=== PATIENT | male | born 1990 | race African-American/Black ===

== ENCOUNTER 2017-08-17 02:09 | Inpatient (IN) | payer OTHER ==
[~2017-08-17] VITALS: Ht 182.9 cm; Wt 76.4 kg
[2017-08-17] VITALS (23 sets, daily range): BP systolic 129–205; BP diastolic 56–104
[2017-08-17] MEDS ORDERED: NS 1,000 ML IV ONE (02:15)
[2017-08-17] MEDS ORDERED: ISOVUE-370 76% 100ML VIAL (Q9967) As Ordered ONE (02:19)
[2017-08-17] MEDS ORDERED: MIDAZOLAM 10MG/5ML SYRUP As Ordered ONE (02:26)
[2017-08-17] MEDS ORDERED: MIDAZOLAM INJ 5 MG/ML VIAL (J2250) As Ordered ONE (02:26)
[2017-08-17] MEDS ORDERED: PROPOFOL 1,000 MG/100 ML VIAL As Ordered ONE (02:33)
[2017-08-17] MEDS ORDERED: ETOMIDATE INJ 20MG/10ML VIAL IV STA (02:38)
[2017-08-17] MEDS ORDERED: SUCCINYLCHOLINE INJ 200 MG/10 ML VIAL (J0330) IV STA (02:38)
[2017-08-17] MEDS ORDERED: PROPOFOL 1,000 MG in APPROPRIATE DILUENT 1 EA IV SCH (02:45)
[2017-08-17] MEDS ORDERED: MIDAZOLAM INJ 5 MG/ML VIAL (J2250) IV ONE (02:52)
[2017-08-17 03:26] LABS: METHADONE URINE NEGATIVE (NEGATIVE)
[2017-08-17 03:28] LABS: ABG BASE EXCESS -3.7 (-2.0-2.0); ABG HCO3 21.7 MEQ/L (22.0-26.0); ABG PARTIAL PRESSURE CO2 40.6 mmHg (35.0-45.0); ABG PARTIAL PRESSURE O2 215.1 mmHg (75.0-100.0); ABG STANDARD HCO3 21.4 MEQ/L (22.0-26.0); ABG TOTAL CO2 22.9 MEQ/L (22.0-29.0); ABG pH (ARTERIAL) 7.345 UNITS (7.350-7.450)
[2017-08-17] MEDS ORDERED: LORazepam 2 MG/ML VIAL (J2060) IV STA (03:38)
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
[2017-08-17] MEDS ORDERED: D5W IV ONE (03:45)
[2017-08-17] MEDS ORDERED: LEVETIRACETAM IV ONE (03:45)
--- NOTE | 2017-08-17 03:50 | REPUSA ---
CLINICAL HISTORY: Neck pain. TECHNIQUE: Multiple axial images were obtained through the cervical spine. Images were also reconstru cted in coronal and sagittal planes. The study was performed without IV contrast. COMMENTS: There is no fracture or spondylolisthesis visualized. The paraspinal soft tissues are unremarkable. T here are no lytic or blastic lesions. Straightening of cervical lordosis is seen, suggesting muscular spasm. There is evidence of minimal m ultilevel disk disease, demonstrated by minimal osteophytosis and endplate sclerosis. No significant disk herniation is noted at any level. Canal and foramina remain patent. IMPRESSION: 1. No fracture or spondylolisthesis. 2. Straightening of cervical lordosis is seen, suggesting muscular spasm. 3. Minimal multilevel spondylosis. Thank you for your kind referral of this patient.
[2017-08-17] MEDS ORDERED: levETIRAcetam INJection 1,000 MG in D5W 100 ML IV ONE (04:00)
[2017-08-17 04:02] LABS: METHADONE URINE NEGATIVE (NEGATIVE)
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
[2017-08-17] MEDS: VECURONIUM BROMIDE 50 MG in D5W 50 ML IV SCH ×2 (04:39→04:45)
[2017-08-17] MEDS ORDERED: NS 1,000 ML IV SCH (05:15)
[2017-08-17 05:16] LABS: BASO % 0.2 % (0.0-1.0); EOS % 0.2 % (0.0-3.0); LARGE UNSTAINED CELL # 0.1 K/mm3 (0.0-0.4); LARGE UNSTAINED CELL % 0.8 % (0.0-4.0); LYMPH # 1.2 K/mm3 (1.5-6.5); LYMPH % 11.7 % (24.0-44.0); MEAN CORPUSCULAR HEMOGLOBIN 33.2 pg (27.0-33.0); MONO # 0.5 K/mm3 (0.0-0.8); MONO % 4.6 % (0.0-5.0); NEUTROPHILS # 8.6 K/mm3 (1.8-7.7); NEUTROPHILS % 82.5 % (36.0-66.0); PLATELET COUNT, AUTOMATED 202 k/mm3 (150-450); RED CELL DISTRIBUTION WIDTH 12.4 % (11.5-14.5); WHITE BLOOD COUNT 10.4 K/mm3 (4.0-10.0)
[2017-08-17 05:22] LABS: MEAN CORPUSCULAR HGB CONC 36.9 g/dl (32.0-36.5)
[2017-08-17 05:33] LABS: BLOOD UREA NITROGEN 15 MG/DL (7-18); CREATININE FOR GFR 1.36 MG/DL (0.70-1.30); GLUCOSE, FASTING 94 MG/DL (70-105)
[2017-08-17 05:34] LABS: ALKALINE PHOSPHATASE 50 U/L (45-117); ALT/SGPT 44 U/L (12-78); AMYLASE 45 U/L (25-115); AST/SGOT 61 U/L (15-37); BILIRUBIN,DIRECT 0.2 MG/DL (0.0-0.2); BILIRUBIN,TOTAL 0.7 MG/DL (0.2-1.0); CALCIUM LEVEL 8.3 MG/DL (8.5-10.1); CARBON DIOXIDE LEVEL 27 MEQ/L (21-32); CHLORIDE LEVEL 102 MEQ/L (98-107); POTASSIUM SERUM 3.8 MEQ/L (3.5-5.1); TOTAL PROTEIN 7.1 GM/DL (6.4-8.2)
[2017-08-17 05:56] LABS: MAGNESIUM LEVEL 1.6 MG/DL (1.8-2.4); PHOSPHORUS LEVEL 1.4 MG/DL (2.5-4.9)
[2017-08-17] MEDS ORDERED: ONDANSETRON 4MG/2ML VIAL (J2405) IV SCH (06:00)
[2017-08-17] MEDS ORDERED: VECURONIUM BROMIDE 10 MG VIAL IV STA (06:13)
[2017-08-17] MEDS: CISATRACURIUM 200 MG in NS 480 ML IV SCH (06:15)
[2017-08-17] MEDS ORDERED: CISATRACURIUM 10MG/ML 20 ML VIAL IV ONE (06:17)
[2017-08-17] MEDS ORDERED: CISATRACURIUM 10MG/ML 20 ML VIAL As Ordered ONE (06:17)
[2017-08-17] MEDS: ACETAMINOPHEN 325 MG/10.15 ML UDC GT PRN (06:30)
[2017-08-17] MEDS ORDERED: CISATRACURIUM 200 MG in NS 480 ML IV SCH (06:30)
[2017-08-17] MEDS: PROPOFOL 1,000 MG in APPROPRIATE DILUENT 1 EA IV SCH ×6 (06:44→22:52)
--- NOTE | 2017-08-17 07:40 | REP ---
Clinical: Trauma. Technique: Single portable supine view. Findings: Endotracheal tube 2.5 cm above the maria del rosario. Mediastinum and cardiac silhouette normal. Lung quiroz are clear and without focal consolidation, effusion, or pneumothorax. Skeletal structures are intact. Impression: 1. Endotracheal tube in satisfactory position. 2. No acute consolidation. Signed by Luis Finch MD 08/17/2017 07:31 A
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
[2017-08-17 08:13] LABS: ALBUMIN 4.1 GM/DL (3.2-5.2); ALBUMIN/GLOBULIN RATIO 1.37 (1.00-1.93); ANION GAP 11 MEQ/L (8-16); SODIUM LEVEL 140 MEQ/L (136-145)
[2017-08-17] MEDS: CHLORHEXIDINE GLUCONATE 0.12 % 15ML UDC (PERIDEX ORAL RINSE) MT SCH ×2 (09:00→21:34)
[2017-08-17] MEDS: PANTOPRAZOLE 40MG INJ (PROTONIX) (C9113) IV SCH (10:06)
[2017-08-17] MEDS ORDERED: NEUTRA-PHOS 1.25 GM PACKET PO STA (11:14)
[2017-08-17] MEDS ORDERED: MIDAZOLAM INJ 2 MG/2 ML VIAL (J2250) IV ONE (11:15)
[2017-08-17] MEDS: MAG SULF 1GM/100ML (MAG RUN) 1 GM in APPROPRIATE DILUENT 1 EA IV SCH ×2 (11:30→13:32)
[2017-08-17] MEDS ORDERED: levETIRAcetam INJection 1,000 MG in D5W 100 ML IV SCH (12:00)
[2017-08-17] MEDS: levETIRAcetam INJection 500 MG in D5W MINI-BAG PLUS 100 ML IV SCH ×4 (12:50→22:23)
--- NOTE | 2017-08-17 17:26 | ECGEPIP ---
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
[2017-08-17] MEDS ORDERED: BACITRACIN OINT 30GM TOP ONE (19:00)
[2017-08-17] MEDS: IPRATROPIUM 0.5MG/ALBUTEROL 2.5MG INH SOL UD 3ML (DUONEB)(J7620) NEB SCH (19:10)
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
[2017-08-18] VITALS (32 sets, daily range): BP systolic 92–176; BP diastolic 50–102
[2017-08-18] MEDS: PROPOFOL 1,000 MG in APPROPRIATE DILUENT 1 EA IV SCH ×8 (01:07→21:22)
[2017-08-18] MEDS: levETIRAcetam INJection 500 MG in D5W MINI-BAG PLUS 100 ML IV SCH ×6 (04:07→20:59)
[2017-08-18] MEDS: ACETAMINOPHEN 325 MG/10.15 ML UDC GT PRN (04:08)
[2017-08-18 05:05] LABS: MEAN CORPUSCULAR HEMOGLOBIN 32.6 pg (27.0-33.0); RED CELL DISTRIBUTION WIDTH 12.7 % (11.5-14.5); WHITE BLOOD COUNT 10.6 K/mm3 (4.0-10.0)
[2017-08-18 05:21] LABS: ALKALINE PHOSPHATASE 58 U/L (45-117); ALT/SGPT 40 U/L (12-78); ANION GAP 10 MEQ/L (8-16); AST/SGOT 76 U/L (15-37); BLOOD UREA NITROGEN 13 MG/DL (7-18); CALCIUM LEVEL 8.8 MG/DL (8.5-10.1); CARBON DIOXIDE LEVEL 25 MEQ/L (21-32); CHLORIDE LEVEL 106 MEQ/L (98-107); CREATININE FOR GFR 1.43 MG/DL (0.70-1.30); GLOMERULAR FILTRATION RATE > 60.0 (>60); GLUCOSE, FASTING 116 MG/DL (70-105); POTASSIUM SERUM 4.5 MEQ/L (3.5-5.1); SODIUM LEVEL 141 MEQ/L (136-145)
[2017-08-18 06:03] LABS: ABG BASE EXCESS -0.5 (-2.0-2.0); ABG PARTIAL PRESSURE CO2 30.5 mmHg (35.0-45.0); ABG PARTIAL PRESSURE O2 150.9 mmHg (75.0-100.0); ABG STANDARD HCO3 24.1 MEQ/L (22.0-26.0); ABG TOTAL CO2 22.9 MEQ/L (22.0-29.0); ABG pH (ARTERIAL) 7.475 UNITS (7.350-7.450)
[2017-08-18] MEDS: CISATRACURIUM 200 MG in NS 480 ML IV SCH ×2 (06:29→12:52)
[2017-08-18] MEDS: IPRATROPIUM 0.5MG/ALBUTEROL 2.5MG INH SOL UD 3ML (DUONEB)(J7620) NEB SCH ×4 (07:42→19:23)
[2017-08-18] MEDS: MORPHINE 2 MG/ML 1ML SYRINGE IV PRN (08:37)
[2017-08-18] MEDS: CHLORHEXIDINE GLUCONATE 0.12 % 15ML UDC (PERIDEX ORAL RINSE) MT SCH ×2 (08:37→21:22)
[2017-08-18] MEDS: PANTOPRAZOLE 40MG INJ (PROTONIX) (C9113) IV SCH (08:37)
--- NOTE | 2017-08-18 09:06 | REP ---
Clinical: Respiratory failure. Comparison: 08/17/2017. Findings: Endotracheal tube approximately 3 cm above the maria del rosario. Nasogastric tube courses below left hemidiaphragm. Mediastinum and cardiac silhouette are normal. Lung quiroz are clear and without consolidation, effusion, or pneumothorax. Impression: 1. Lines and tubes in satisfactory position. II. No acute cardiopulmonary process. Signed by Luis Finch MD 08/18/2017 08:22 A
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
[2017-08-18] MEDS: MIDAZOLAM INJ 2 MG/2 ML VIAL (J2250) IV PRN ×5 (09:59→19:15)
[2017-08-18] MEDS: ACETAMINOPHEN 325 MG/10.15 ML UDC GT SCH ×3 (10:13→21:22)
[2017-08-18] MEDS ORDERED: MIDAZOLAM INJ 2 MG/2 ML VIAL (J2250) IV ONE ×3 (12:22→12:50)
[2017-08-18] MEDS ORDERED: MIDAZOLAM INJ 5 MG/ML VIAL (J2250) As Ordered ONE ×3 (12:22→12:50)
[2017-08-18] MEDS ORDERED: PHENYTOIN INJ 250 MG/5 ML VIAL (J1165) IV ONE (13:15)
[2017-08-18] MEDS ORDERED: NS IV ONE (13:30)
[2017-08-18] MEDS ORDERED: PHENYTOIN IV ONE (13:30)
--- NOTE | 2017-08-18 15:05 | CCN ---
DATE: 08/18/2017 This is in addition to the 45 minutes already dictated this morning. This excludes all procedures. I was called to the patient's bedside for tonic-clonic activity. Prior to my arrival, the patient had recently received Versed which stopped tonic-clonic; however, the mother who has a child with history of seizures, states that it appeared to be a seizure to her. He had drooling and was biting on his tube. Shortly after I witnessed he had a tonic-clonic seizure of approximately 2-1/2 minutes. During this time, he received a total of eight of Versed, a propofol bolus and after cessation of seizure activity, was placed back on paralysis as his temperature was going up. I then loaded with Dilantin, requested neurology consultation, and sent the patient for head CT to ensure there is no further bleeding. I requested electroencephalogram (EEG); however, at this point in time was not recommended that he receive an EEG. Will lift paralysis after head ct and Dilantin loading to ensure no further seizure activity. [facility]
--- NOTE | 2017-08-18 16:43 | REP ---
Clinical: Follow up intracranial hemorrhage. Comparison: 08/17/2017. Findings: There is essentially complete resolution of the previously identified small scattered contusions and foci of subarachnoid hemorrhage which were primarily noted in the bilateral frontal and right parietal lobes. No new acute intracranial hemorrhage, edema or mass/mass effect is appreciated. Kennedy-white differentiation is maintained. No extra-axial collection identified the ventricles, sulci and cisterns are symmetric and normal. The calvarium is intact partial opacification to the ethmoid and sphenoid sinuses noted and nonspecific. The mastoid air cells are clear. Impression: 1. Improving intracranial hemorrhages which have essentially completely resolved. No new acute hemorrhage, edema or mass/mass effect noted. No extra-axial collection. 2. Small amount of fluid in the ethmoid and sphenoid sinuses nonspecific. Signed by Luis Finch MD 08/18/2017 04:36 P
[2017-08-18] MEDS ORDERED: MIDAZOLAM INJ 2 MG/2 ML VIAL (J2250) IV STA ×3 (17:15→23:06)
[2017-08-18] MEDS: LORazepam 2 MG/ML VIAL (J2060) IV PRN ×2 (18:09→21:51)
[2017-08-18] MEDS ORDERED: LORazepam 2 MG/ML VIAL (J2060) IV SCH (18:30)
[2017-08-18] MEDS ORDERED: REFRIGERATOR IV KEYS XX PRN (18:30)
[2017-08-18] MEDS ORDERED: D5W IV SCH (19:00)
[2017-08-18] MEDS ORDERED: MIDAZOLAM HCL IV SCH (19:00)
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
[2017-08-18] MEDS ORDERED: PHENYTOIN 100 MG/2 ML VIAL (J1165) IV SCH (22:00)
[2017-08-19] VITALS (27 sets, daily range): BP systolic 95–143; BP diastolic 51–82; O2SAT 99–100
[2017-08-19] MEDS: PROPOFOL 1,000 MG in APPROPRIATE DILUENT 1 EA IV SCH ×8 (00:44→22:21)
[2017-08-19] MEDS: levETIRAcetam INJection 500 MG in D5W MINI-BAG PLUS 100 ML IV SCH ×6 (04:07→20:44)
[2017-08-19] MEDS: ACETAMINOPHEN 325 MG/10.15 ML UDC GT SCH ×4 (04:07→22:33)
[2017-08-19 05:53] LABS: ABG BASE EXCESS -2.4 (-2.0-2.0); ABG HCO3 21.4 MEQ/L (22.0-26.0); ABG PARTIAL PRESSURE CO2 34.6 mmHg (35.0-45.0); ABG PARTIAL PRESSURE O2 139.5 mmHg (75.0-100.0); ABG STANDARD HCO3 22.5 MEQ/L (22.0-26.0); ABG TOTAL CO2 22.5 MEQ/L (22.0-29.0)
[2017-08-19] MEDS: HumaLOG INSULIN (NovoLOG) PER UNIT SC SCH ×3 (06:00→18:23)
[2017-08-19 06:07] LABS: MEAN CORPUSCULAR HEMOGLOBIN 32.9 pg (27.0-33.0); MEAN CORPUSCULAR HGB CONC 35.2 g/dl (32.0-36.5); MEAN CORPUSCULAR VOLUME 93.4 fl (80.0-96.0); RED CELL DISTRIBUTION WIDTH 12.7 % (11.5-14.5); WHITE BLOOD COUNT 8.6 K/mm3 (4.0-10.0)
[2017-08-19] MEDS: PHENYTOIN INJ 250 MG/5 ML VIAL (J1165) IV SCH ×3 (06:17→22:32)
[2017-08-19 06:24] LABS: ALBUMIN 3.2 GM/DL (3.2-5.2); ALBUMIN/GLOBULIN RATIO 0.89 (1.00-1.93); ALKALINE PHOSPHATASE 58 U/L (45-117); ALT/SGPT 31 U/L (12-78); ANION GAP 10 MEQ/L (8-16); AST/SGOT 39 U/L (15-37); BILIRUBIN,TOTAL 0.6 MG/DL (0.2-1.0); BLOOD UREA NITROGEN 11 MG/DL (7-18); CALCIUM LEVEL 8.6 MG/DL (8.5-10.1); CARBON DIOXIDE LEVEL 25 MEQ/L (21-32); CHLORIDE LEVEL 107 MEQ/L (98-107); CREATININE FOR GFR 1.15 MG/DL (0.70-1.30); GLOMERULAR FILTRATION RATE > 60.0 (>60); GLUCOSE, FASTING 185 MG/DL (70-105); POTASSIUM SERUM 4.1 MEQ/L (3.5-5.1); SODIUM LEVEL 142 MEQ/L (136-145); TOTAL PROTEIN 6.8 GM/DL (6.4-8.2)
[2017-08-19] MEDS: IPRATROPIUM 0.5MG/ALBUTEROL 2.5MG INH SOL UD 3ML (DUONEB)(J7620) NEB SCH ×4 (07:08→20:00)
[2017-08-19] MEDS ORDERED: REFRIGERATOR IV KEYS XX PRN (07:30)
--- NOTE | 2017-08-19 07:45 | REP ---
Portable chest, 06:59 a.m., single AP view, the patient semi upright: Comparison is 08/18/2017. The lung quiroz are clear. The cardiac size is normal. There is thoracic scoliosis convex right, possibly positional. The endotracheal tube remains in satisfactory location with the tip just above the aortic arch. The nasogastric tube is in satisfactory position, terminating in the upper abdomen. The precise location of the distal tip is excluded at the inferior film margin. Impression: No acute cardiopulmonary findings. Thoracic scoliosis. Endotracheal tube and nasogastric tube in satisfactory locations, unchanged. Signed by Rd Hodges MD 08/19/2017 07:36 A
[2017-08-19] MEDS ORDERED: GLUCOSE 4 GM CHEW TABLET PO PRN (08:00)
[2017-08-19] MEDS ORDERED: DEXTROSE 50% 50 ML SYRINGE IV PRN (08:00)
[2017-08-19] MEDS ORDERED: GLUCAGON FOR INJ 1 MG VIAL (J1610) SC PRN (08:00)
[2017-08-19] MEDS: CHLORHEXIDINE GLUCONATE 0.12 % 15ML UDC (PERIDEX ORAL RINSE) MT SCH ×2 (09:47→22:32)
[2017-08-19] MEDS: PANTOPRAZOLE 40MG INJ (PROTONIX) (C9113) IV SCH (09:48)
[2017-08-19] MEDS ORDERED: PROPOFOL 200 MG/20 ML VIAL ONE (09:51)
[2017-08-19] MEDS ORDERED: SUCCINYLCHOLINE 100 MG/5 ML SYRINGE (J0330) ONE (09:51)
[2017-08-19] MEDS ORDERED: ETOMIDATE INJ 20MG/10ML VIAL ONE (09:51)
--- NOTE | 2017-08-19 11:31 | EEG ---
DATE OF EE08/19/2017 REFERRING PHYSICIAN: Dr. Meliton Atkins DIAGNOSIS: Traumatic brain injury, tremor, seizures. EEG NUMBER: [id number]. REASON FOR EEG: Patient with history of traumatic brain injury, subarachnoid hemorrhage, parenchymal contusions of brain who is intubated on mechanical ventilation and has seizures. This EEG was done to evaluate for epileptic potential. He is currently on propofol, Keppra, Versed, Dilantin, etc. TECHNICAL DESCRIPTION: This digital EEG was recorded by 21 scalp, ear and two EKG electrodes and was reviewed in bipolar and referential montages following reformatting in 10-20 international electrode placement system. INTERPRETATION: Patient is intubated on mechanical ventilation and under sedation. Background rhythm consisted of 4-5 Hz theta activity with mild burst suppression pattern. Photic stimulation remained unremarkable. Hyperventilation could not be performed. No focal, lateralizing or epileptiform abnormalities were seen. No clinical or electrographic seizures were recorded. CONCLUSION: This EEG in an intubated patient on mechanical ventilator under sedation is abnormal due to presence of generalized slowing and mild burst suppression pattern consistent with nonspecific diffuse cerebral dysfunction such as seen in encephalopathy due to multiple potential causes including toxic, metabolic, medication related, infectious, multifocal structural abnormalities of brain. No epileptiform abnormalities were seen. If clinical suspicion for seizures remains high, a repeat EEG after stopping sedatives should be considered. Clinical correlation is recommended.
[2017-08-19] MEDS: LORazepam 2 MG/ML VIAL (J2060) IV PRN ×2 (11:48→17:32)
[2017-08-19] MEDS: MIDAZOLAM INJ 2 MG/2 ML VIAL (J2250) IV PRN ×5 (11:56→21:27)
[2017-08-19] MEDS ORDERED: MIDAZOLAM INJ 2 MG/2 ML VIAL (J2250) IV STA (12:13)
[2017-08-19] MEDS: MORPHINE 2 MG/ML 1ML SYRINGE IV PRN (12:16)
[2017-08-19] MEDS: MIDAZOLAM HCL 100 MG in D5W 80 ML IV SCH (19:00)
[2017-08-20] VITALS (42 sets, daily range): BP systolic 78–134; BP diastolic 40–65; O2SAT 99–100
[2017-08-20] MEDS: HumaLOG INSULIN (NovoLOG) PER UNIT SC SCH ×4 (00:45→18:18)
[2017-08-20] MEDS: PROPOFOL 1,000 MG in APPROPRIATE DILUENT 1 EA IV SCH ×8 (00:50→22:47)
[2017-08-20] MEDS: ACETAMINOPHEN 325 MG/10.15 ML UDC GT SCH ×4 (03:56→21:58)
[2017-08-20] MEDS: levETIRAcetam INJection 500 MG in D5W MINI-BAG PLUS 100 ML IV SCH ×4 (03:57→11:38)
[2017-08-20 05:36] LABS: MEAN CORPUSCULAR HEMOGLOBIN 33.4 pg (27.0-33.0); MEAN CORPUSCULAR HGB CONC 35.3 g/dl (32.0-36.5); MEAN CORPUSCULAR VOLUME 94.6 fl (80.0-96.0); RED CELL DISTRIBUTION WIDTH 12.5 % (11.5-14.5); WHITE BLOOD COUNT 4.9 K/mm3 (4.0-10.0)
[2017-08-20 05:43] LABS: ABG BASE EXCESS -0.8 (-2.0-2.0); ABG HCO3 23.7 MEQ/L (22.0-26.0); ABG PARTIAL PRESSURE CO2 38.8 mmHg (35.0-45.0); ABG PARTIAL PRESSURE O2 72.9 mmHg (75.0-100.0); ABG STANDARD HCO3 23.7 MEQ/L (22.0-26.0); ABG TOTAL CO2 24.8 MEQ/L (22.0-29.0); ABG pH (ARTERIAL) 7.403 UNITS (7.350-7.450)
[2017-08-20 06:05] LABS: ALBUMIN 2.7 GM/DL (3.2-5.2); ALBUMIN/GLOBULIN RATIO 0.66 (1.00-1.93); ALKALINE PHOSPHATASE 52 U/L (45-117); ALT/SGPT 31 U/L (12-78); ANION GAP 8 MEQ/L (8-16); AST/SGOT 34 U/L (15-37); BILIRUBIN,TOTAL 0.7 MG/DL (0.2-1.0); BLOOD UREA NITROGEN 14 MG/DL (7-18); CALCIUM LEVEL 8.6 MG/DL (8.5-10.1); CARBON DIOXIDE LEVEL 26 MEQ/L (21-32); CHLORIDE LEVEL 102 MEQ/L (98-107); CREATININE FOR GFR 1.64 MG/DL (0.70-1.30); GLOMERULAR FILTRATION RATE > 60.0 (>60); GLUCOSE, FASTING 272 MG/DL (70-105); POTASSIUM SERUM 4.6 MEQ/L (3.5-5.1); SODIUM LEVEL 136 MEQ/L (136-145); TOTAL PROTEIN 6.8 GM/DL (6.4-8.2)
[2017-08-20] MEDS: PHENYTOIN INJ 250 MG/5 ML VIAL (J1165) IV SCH ×3 (06:13→21:59)
--- NOTE | 2017-08-20 08:23 | REP ---
Portable chest, 06:57 a.m., single AP view, the patient semi upright: Comparison 08/19/2017. The endotracheal tube and nasogastric tube remain in satisfactory locations, unchanged. There is new focal increased radiodensity inferiorly in the right lung compatible with effusion/infiltrate. Left lung remains clear. Cardiac size is normal. Impression: New infiltrate/effusion inferiorly in the right lung. Signed by Rd Hodges MD 08/20/2017 08:14 A
[2017-08-20] MEDS: IPRATROPIUM 0.5MG/ALBUTEROL 2.5MG INH SOL UD 3ML (DUONEB)(J7620) NEB SCH ×4 (08:41→19:28)
[2017-08-20] MEDS ORDERED: NEUTRA-PHOS 1.25 GM PACKET PO SCH (09:00)
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
[2017-08-20] MEDS: PANTOPRAZOLE 40MG INJ (PROTONIX) (C9113) IV SCH (09:30)
[2017-08-20] MEDS: MORPHINE 2 MG/ML 1ML SYRINGE IV PRN ×3 (09:32→14:13)
[2017-08-20] MEDS: MIDAZOLAM HCL 100 MG in D5W 80 ML IV SCH (10:23)
[2017-08-20 11:02] LABS: MAGNESIUM LEVEL 1.4 MG/DL (1.8-2.4); PHOSPHORUS LEVEL 2.3 MG/DL (2.5-4.9)
--- NOTE | 2017-08-20 11:36 | CCN ---
DATE OF SERVICE: 08/19/2017 Critical care time was 1 hour. This excludes all procedures. Overnight, patient had some seizure activity. Last seizure witnessed was about midnight. He is having intermittent tremors this morning, which do not appear to be seizure activity and stop with touch. He required Dilantin loading and then an increase in the Dilantin dosing. He also continues on Keppra along with propofol and Versed. Repeat head CT yesterday showed some resolving parenchymal hemorrhage. PHYSICAL EXAM: Temperature is 97.9 rectally, pulse is 84, respiratory rate is 20, blood pressure is 95/53 with a mean arterial pressure of 67, oxygen saturation is 99% on 0.25. General: Patient is sedated on mechanical ventilation with occasional tremor this morning. HEENT: Sclera clear on the right. Minimal yellowing to the lateral sclera on the left. There is a lateral canthus lesion. Pupils are approximately 3 mm and reactive to light. There is no evidence of nasopharyngeal bleeding. No bleeding from the ears bilaterally. Tongue is midline. Possible lesion on the lateral tongue on the right without any bleeding, but the tongue is midline. Jaw is easily opened. Neck: Is supple. No tracheal deviation or mass. No elevated JVP. Carotid upstroke is normal. Cardiac: Regular S1, S2 without audible murmur, rub, or gallop. No elevated JVP. No edema. Pulmonary: Clear to auscultation without rales, rhonchi, or wheezes. No dullness to percussion. No accessory muscle use. Abdomen: Soft, nontender, and nondistended with normoactive bowel sounds. No bowel movements as of yet; however, did pass flatus. Extremities: No cyanosis, clubbing, or edema. Neurologic: At this point in time, has one beat of myoclonus and the lower extremities has a tremor in response to being moved; however, this self resolves. There is no evidence of seizure activity this morning. Musculoskeletal: Muscle tone well developed. LABORATORY: Laboratory evaluation shows sodium 142, potassium 4.1, chloride 107, bicarbonate 25, BUN of 11. Creatinine is down to 1.15 from 1.43. Arterial blood gas shows a pH of 7.41, pCO2 of 35, pO2 of 139. Hemoglobin of 14.4, hematocrit of 40.8 with a platelet count of 175. Glucose is elevated at 185. Chest x-ray shows that the endotracheal tube is too high. IMPRESSION: 1. Respiratory failure. Continues to require mechanical ventilation. Has significant seizure activity. I did observe full tonic-clonic seizures yesterday. Observed by the nursing staff overnight last at midnight. He had some tremulousness this morning and shivering, does not appear to be true seizure activity. He will be obtaining an EEG this morning. 2. Hyperglycemia. Placed him on a sliding scale insulin. Likely from the D5 that is mixed in with his medications. 3. Gastrointestinal (GI) prophylaxis. On Protonix. 4. Nutrition. On tube feeds at 70 mL/h. 5. Seizures, fairly frequent requiring significant medication administration. As above, has EEG pending today. Is currently on Keppra, Dilantin three times a day, Versed, propofol; however, most recent CT showed improved hemorrhage. 6. Deep venous thrombosis (DVT) prophylaxis with thromboembolism deterrents (TEDs) and Kend[place]. Appreciate Dr. Dickinson's input. Overall, I am hopeful for a good overall prognosis. His most critical diagnosis is his ongoing seizure activity. Will continue to monitor for improvement in seizure activity and timing of extubation trials.
[2017-08-20] MEDS ORDERED: METOCLOPRAMIDE 5 MG TAB PO SCH (12:00)
[2017-08-20 12:33] LABS: OSMOLALITY URINE 523 MOSM/KG (500-800)
[2017-08-20] MEDS ORDERED: MAGNESIUM SULFATE 8 MEQ in NS 100 ML IV ONE (13:00)
[2017-08-20] MEDS ORDERED: TOLVAPTAN 15 MG TAB (SAMSCA) NG ONE (13:15)
[2017-08-20] MEDS ORDERED: MAG SULF 1GM/100ML (MAG RUN) 1 GM in APPROPRIATE DILUENT 1 EA IV ONE ×2 (13:15→14:15)
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
[2017-08-20] MEDS ORDERED: SODIUM PHOSPHATE INJ 20 MMOL in D5W 250 ML IV ONE (14:00)
[2017-08-20] MEDS: NS 1,000 ML IV SCH (14:11)
[2017-08-20] MEDS: METOCLOPRAMIDE INJ 10MG/2ML VIAL (J2765) IV SCH ×2 (14:12→19:37)
[2017-08-20 14:28] LABS: CALCIUM LEVEL 8.3 MG/DL (8.5-10.1); CREATININE FOR GFR 1.91 MG/DL (0.70-1.30); GLOMERULAR FILTRATION RATE 54.4 (>60); POTASSIUM SERUM 4.6 MEQ/L (3.5-5.1)
[2017-08-20] MEDS: CHLORHEXIDINE GLUCONATE 0.12 % 15ML UDC (PERIDEX ORAL RINSE) MT SCH ×2 (14:43→21:58)
--- NOTE | 2017-08-20 15:21 | CCN ---
DATE: 08/20/2017 Critical care time was 1 hour. This excludes all procedures. On review of the patient's morning laboratories, he had a sodium change of 6. Unbeknownst to me, nephrology was already reconsulted. I had placed similar orders to what they had placed and then discontinued them. I agree with their assessment. Normal saline needs to be administered. We will continue to watch sodium closely to avoid any rapid changes. I will therefore defer the management of the sodium to the simulation educator as this is what I assume that were consulted for. He had his tube feeds held overnight, which I believe is the most likely reason for the change in his sodium. Overall, he has been doing well and has been having less seizure activity, remains on sedation. Head CT from this morning shows resolving petechial hemorrhages, some slight increase in edema. No midline shift. The patient has been having high residuals. VITAL SIGNS: Temperature is 98.6, pulse is 97, respiratory rate is 26, blood pressure is 107/51, oxygen saturations 96% on 25% FiO2. PHYSICAL EXAMINATION: Pupils are small but reactive to light. Mucous membranes are moist without lesions. There has been a foul grant discharge from his mouth thought to be possibly tube feeds. Neck has a soft collar in place. Lymphatics: No cervical, supraclavicular, or axillary adenopathy. CARDIAC: Regular S1, S2 without audible murmur, rub or gallop. No elevated jugular venous pressure. No peripheral edema. PULMONARY: Clear to auscultation without rales, rhonchi or wheezes. No accessory muscle use. ABDOMEN: Soft, nontender, nondistended. No hepatosplenomegaly. No masses or hernia. EXTREMITIES: No cyanosis, clubbing or edema. NEUROLOGIC: No evidence of myoclonus or seizure activity today. SKIN: No rashes, jaundice or bruising. Left canthus laceration, healing without surrounding erythema. Chest x-ray shows a new finding this morning of right lower lobe effusion. Endotracheal tube is in good position. OG tube is in good position. There are no central lines. Laboratory evaluation shows a sodium 136, potassium 4.6, chloride 102, bicarbonate of 26, BUN of 14, creatinine 1.6, phosphorus of 2.3, magnesium of 1.4. White blood cell count is 4.9, hemoglobin is 14.4, hematocrit is 40.9, platelet count is 165. IMPRESSION: 1. Respiratory failure secondary to traumatic brain injury, currently doing well on mechanical ventilation. Arterial blood gas shows a pH of 7.40, pCO2 of 38 and pAO2 of 73. 2. Change of 6 in sodium. I feel this is likely from his decreased input. I agree with nephrology's current recommendation and changes. 3. Hypomagnesemia. Replaced by nephrology. 4. Traumatic brain injury with seizures. Plan is to remove sedation tomorrow to evaluate seizure activity and to consider EEG based on response. 5. GI dysmotility. Have added Reglan to help with tube feeds. 6. Gastrointestinal prophylaxis with Protonix. 7. Deep vein thrombosis (DVT) prophylaxis. Andre.
--- NOTE | 2017-08-20 15:45 | REP ---
CHEST: AP supine film of the chest is performed 3:25 p.m. and compared to prior exam the same day. Endotracheal tube is seen with the tip between the level of the clavicles and the [place]. Nasogastric tube traverses into the stomach. Right lower lobe atelectasis/infiltrate is somewhat improved. Cardiomediastinal silhouette is unchanged. IMPRESSION: Mild improvement of right lower lobe atelectasis/infiltrate. Otherwise stable. Signed by Rd Kennedy MD 08/20/2017 04:52 P
[2017-08-20] MEDS ORDERED: NS 1,000 ML IV ONE (16:00)
--- NOTE | 2017-08-20 16:35 | RO ---
DATE OF PROCEDURE: 08/20/2017 PREPROCEDURE DIAGNOSIS: Hypotension. POSTPROCEDURE DIAGNOSIS: Hypotension. OPERATIVE PROCEDURE: Right internal jugular venous catheter. Triple lumen catheter. SURGEON: Vivek Giles DO SCHOOL AGE TEACHER: None ANESTHESIA: The patient was sedated with propofol and versed. Had no reaction to touch. CONSENT: Consent was given verbally for all critical procedures. I specifically discussed this procedure with his mother previously and she had given consent in case this was needed during his ICU care, however, no written consent has been obtained. This was deemed and emergent procedure. DESCRIPTION OF PROCEDURE: The right IJ was prepped and draped in a sterile manner with chlorhexidine and full barrier precaution. The right IJ was identified under ultrasound. The [place] syringe was introduced into IJ with return of venous blood flow after a time-out was performed with two patient identifiers identifying correct site, correct procedure. The wire was then fed through the needle and the needle was removed. The triple-lumen catheter was then placed via modified Seldinger technique. All three ports returned venous blood flow and flushed easily. There were no observed complications. Postprocedure chest x- ray shows good placement with the tip in the superior vena cava (SVC). The line was sutured in at 15 cm and a sterile impregnated dressing was placed over the site. MTDJayro
--- NOTE | 2017-08-20 16:38 | RO ---
DATE OF PROCEDURE: 08/20/2017 I was called emergently to the patient's bedside for hypoxia. To evaluate the cause of his hypoxia, because I did not hear good air entry on the right, I performed bronchoscopy. PREPROCEDURE DIAGNOSIS: Hypoxia. POSTPROCEDURE DIAGNOSIS: Hypoxia. PROCEDURE: Bronchoscopy. SURGEON: Dr. Vivek Giles ORNAMENT STAPLER: None ANESTHESIA: Patient already on Versed and propofol for anesthesia. DESCRIPTION OF PROCEDURE: The patient was already sedated on mechanical ventilation. Time-out was performed using two patient identifiers, correct site, correct procedure. The bronchoscope was then introduced endotracheally with Cetacaine spray. There was no obstructing mucus. Right and left mainstem bronchi were normal except for some mucus in the right lower lobe which was suctioned. There were no observed complications. The patient was bagged and the hypoxia improved along with switching to an ear probe. Of note, the patient was slightly more hypotensive during this episode. Normal saline was administered. No observed complications. MTDD
[2017-08-20] MEDS: PIPERACILLIN/TAZOBACTAM SOD 3.375 GM in D5W MINI-BAG PLUS 50 ML IV SCH ×2 (16:51→21:58)
--- NOTE | 2017-08-20 17:10 | CCN ---
DATE: 08/20/2017 Critical care time was 30 minutes in addition to the prior hour that was already performed today. This excludes all procedures. I was urgently called to the patient's bedside for hypoxia. At the bedside, I took the patient off mechanical ventilation, bagged the patient, had saturations of 50% which appear to be in a good wave form. I heard decreased breath sounds on the left compared to the right. I was concerned for possible pneumothorax. Chest x-ray was performed showing infiltrate on the right side. I performed bronchoscopy which did not have any significant central airway obstruction but a minimal amount of mucus on the right. The patient was already on sedation. Sedation had not been changed in quite some time. Blood pressure was also lower at that point in time, and it was felt that maybe the oximetry probe had decreased perfusion and was switched to an ear probe which showed better oxygenation, although a slightly lower oxygen saturation on the same amount of oxygen that he was being previously prescribed. His blood pressure remained low; therefore, I gave a liter of normal saline bolus. Being concerned for the possibility of sepsis from an aspiration pneumonia, I placed him on antibiotics in the form of Zosyn. A central line was placed, CVP was 14. After the bolus of fluid, his blood pressure remained labile, due to the fact that his central venous pressure is 14, will use vasopressor therapy if necessary.
[2017-08-20 17:30] LABS: CALCIUM LEVEL 7.3 MG/DL (8.5-10.1); CREATININE FOR GFR 1.96 MG/DL (0.70-1.30); GLOMERULAR FILTRATION RATE 52.8 (>60); POTASSIUM SERUM 4.3 MEQ/L (3.5-5.1)
[2017-08-20] MEDS ORDERED: NOREPINEPHRINE BITARTRATE 8 MG in D5W 500 ML IV SCH (19:00)
[2017-08-20] MEDS: LEVETIRACETAM IV SCH (19:41)
[2017-08-20] MEDS: NS IV SCH (19:41)
[2017-08-20 21:19] LABS: CREATININE FOR GFR 2.09 MG/DL (0.70-1.30); POTASSIUM SERUM 4.2 MEQ/L (3.5-5.1)
[2017-08-20] MEDS: NOREPINEPHRINE BITARTRATE 8 MG in D5W 500 ML IV SCH (22:46)
[2017-08-21] VITALS (41 sets, daily range): BP systolic 82–167; BP diastolic 43–97; O2SAT 93–98
[2017-08-21] MEDS: HumaLOG INSULIN (NovoLOG) PER UNIT SC SCH ×4 (00:45→18:06)
[2017-08-21] MEDS ORDERED: NS 1,000 ML IV ONE (00:45)
[2017-08-21] MEDS: METOCLOPRAMIDE INJ 10MG/2ML VIAL (J2765) IV SCH (02:00)
[2017-08-21 02:16] LABS: CALCIUM LEVEL 6.8 MG/DL (8.5-10.1); CREATININE FOR GFR 2.45 MG/DL (0.70-1.30); GLOMERULAR FILTRATION RATE 40.8 (>60); POTASSIUM SERUM 4.3 MEQ/L (3.5-5.1)
[2017-08-21] MEDS: NS 1,000 ML IV SCH (02:28)
[2017-08-21] MEDS: PROPOFOL 1,000 MG in APPROPRIATE DILUENT 1 EA IV SCH ×2 (02:29→06:40)
[2017-08-21] MEDS: PIPERACILLIN/TAZOBACTAM SOD 3.375 GM in D5W MINI-BAG PLUS 50 ML IV SCH ×4 (03:43→21:22)
[2017-08-21] MEDS: ACETAMINOPHEN 325 MG/10.15 ML UDC GT SCH ×4 (03:43→21:21)
[2017-08-21] MEDS: MIDAZOLAM HCL 100 MG in D5W 80 ML IV SCH (04:20)
[2017-08-21] MEDS: LEVETIRACETAM IV SCH ×3 (04:38→20:52)
[2017-08-21] MEDS: NS IV SCH ×3 (04:38→20:52)
[2017-08-21] MEDS: PHENYTOIN INJ 250 MG/5 ML VIAL (J1165) IV SCH ×3 (05:37→21:21)
--- NOTE | 2017-08-21 05:38 | REP ---
Portable chest x-ray: Supine AP view. Time stamp 3:46 p.m. History: Post line insertion. Respiratory failure. Comparison study 08/20/2017 at 3:29 p.m. Findings: Endotracheal tube remains in good position at the level of the transverse aorta. An NG tube enters left upper quadrant of the abdomen. A right internal jugular central venous catheter is inserted with its tip in the expected location of the superior vena cava. EKG electrodes are seen. There is a homogeneous alveolar opacity in the right lower lobe distribution. Pulmonary vascular congestion is seen. There is some right upper lobe perihilar opacity on the current film. Right lung opacity is more pronounced than on the study done 15 minutes earlier. There is some parenchymal opacity in the left lower lobe as well. There is no evidence of pneumothorax. Impression: Increasing opacity in the right lung and left lower lobe. Current film is exposed at a somewhat lesser level of inspiration. Right IJ line terminates in the expected location of the SVC. No pneumothorax is seen. Signed by Phong Santana MD 08/21/2017 09:08 A
[2017-08-21 06:06] LABS: ABG BASE EXCESS -10.9 (-2.0-2.0); ABG HCO3 15.6 MEQ/L (22.0-26.0); ABG PARTIAL PRESSURE O2 62.6 mmHg (75.0-100.0); ABG STANDARD HCO3 15.7 MEQ/L (22.0-26.0); ABG TOTAL CO2 16.7 MEQ/L (22.0-29.0)
[2017-08-21 06:06] LABS: ADD MANUAL DIFFER YES; MEAN CORPUSCULAR HGB CONC 34.1 g/dl (32.0-36.5); PLATELET COUNT, AUTOMATED 171 k/mm3 (150-450); RED CELL DISTRIBUTION WIDTH 12.7 % (11.5-14.5); WHITE BLOOD COUNT 7.8 K/mm3 (4.0-10.0)
[2017-08-21 06:11] LABS: ABG pH (ARTERIAL) 7.242 UNITS (7.350-7.450)
[2017-08-21 06:25] LABS: CALCIUM LEVEL 6.7 MG/DL (8.5-10.1); CREATININE FOR GFR 2.18 MG/DL (0.70-1.30); GLOMERULAR FILTRATION RATE 46.7 (>60); POTASSIUM SERUM 4.8 MEQ/L (3.5-5.1)
[2017-08-21 07:00] LABS: BANDS 18 % (< 11)
[2017-08-21 07:01] LABS: PLATELET CLUMPS SMALL AMT
--- NOTE | 2017-08-21 07:59 | REP ---
Portable chest, 06:57 a.m., single AP view, the patient semi upright: Comparison is 08/20/2017, 03:46 p.m. There are infiltrates throughout the right lung, more density inferiorly. Right hemidiaphragm is obscured. The findings are similar to the comparison study except that the right hemidiaphragm is not obscured previously. Focal increased radiodensity inferiorly in the left lung. This has increased. Cardiac size is upper normal. This is unchanged. The right IJ central venous catheter and nasogastric tube remain in satisfactory locations, unchanged. Signed by Rd Hodges MD 08/21/2017 07:51 A
[2017-08-21] MEDS: IPRATROPIUM 0.5MG/ALBUTEROL 2.5MG INH SOL UD 3ML (DUONEB)(J7620) NEB SCH ×4 (08:22→20:10)
[2017-08-21] MEDS ORDERED: HumaLOG INSULIN (NovoLOG) PER UNIT SC ONE (08:30)
[2017-08-21 08:58] LABS: ABG BASE EXCESS -9.8 (-2.0-2.0); ABG HCO3 16.7 MEQ/L (22.0-26.0); ABG PARTIAL PRESSURE CO2 38.6 mmHg (35.0-45.0); ABG PARTIAL PRESSURE O2 63.6 mmHg (75.0-100.0); ABG STANDARD HCO3 16.6 MEQ/L (22.0-26.0); ABG TOTAL CO2 17.9 MEQ/L (22.0-29.0); ABG pH (ARTERIAL) 7.254 UNITS (7.350-7.450)
[2017-08-21] MEDS: PANTOPRAZOLE 40MG INJ (PROTONIX) (C9113) IV SCH (09:00)
[2017-08-21] MEDS: CHLORHEXIDINE GLUCONATE 0.12 % 15ML UDC (PERIDEX ORAL RINSE) MT SCH (09:05)
--- NOTE | 2017-08-21 09:05 | CCN ---
DATE: 08/21/2017 CRITICAL CARE TIME: 1 hour 15 minutes, this excludes all procedures. I was called to patient's bedside as he was more acidotic on his arterial blood gas this morning. He is on 4 of Levophed with a blood pressure of 123/60 and CVP of 22. He has good urine output. He has a lactic acidosis with a lactate of 10 and his CK is elevated. I had a discussion with neurology this morning. It was thought that possibly the elevated lactate and CK could be due to seizure activity or propofol. I have therefore discontinued the propofol and converted him only to Versed. His Versed had been off for part of the night in order facilitate electroencephalogram (EEG) in the morning. He is overbreathing the vent. He is febrile. He is being cooled. He is also more hyperglycemic this morning. PHYSICAL EXAMINATION: Vitals: Temperature is 99.2 rectally, pulse is 95, blood pressure is 123/60 on Levophed of 4, this was turned down to 2 when I was at bedside. Respiratory rate is ranging 29 to high 30s. His oxygen saturation is 99% on 0.45 FiO2. Ins and Outs: The patient is net positive 2.6 liters over the past 24 hours. The day before that, he was net negative 386 mL. General: The patient is sedated on mechanical ventilation. No visible seizure activity. No visible tremor at this point in time. HEENT: Sclerae are edematous. Conjunctivae are edematous. Pupils are equal and reactive to light. Mucous membranes are moist. Tongue is midline. Neck is supple. Right internal jugular (IJ) is in place without surrounding erythema or exudate. Lymphs: No cervical, supraclavicular or axillary adenopathy. Cardiac: Tachycardiac. S1, S2. Without audible murmur, rub or gallop. No elevated jugular venous pulse (JVP). No peripheral edema. Pulmonary: Breath sounds are clear bilaterally. No rales, rhonchi or wheezes. No dullness to percussion. Abdomen: I do not auscultate any bowel sounds. He is using abdominal muscles with breathing. Extremities: No cyanosis, clubbing or edema. He has no significant sacral edema. LABORATORY EVALUATION: Shows a sodium of 140, potassium 4.8, chloride 104, bicarb of 19, BUN of 22, creatinine of 2.18. White blood cell count of 7.8 with a hemoglobin of 12.6, hematocrit of 36.9 and platelet count of 171. There is a bandemia of 18. Anion gap is 17 this morning. Calcium is low at 6.7. CK is elevated at 3581 and lactate is 10.9. IMPRESSION: 1. Respiratory failure secondary to traumatic brain injury. Continue on mechanical ventilation. Based on his arterial blood gas, I did increase his FiO2 this morning; however, oxygen saturation on monitoring has been 99% since the one event yesterday. 2. Sepsis with bandemia from pneumonia. He has been treated with Zosyn. His mean arterial pressure has been more than adequate since last evening. He has been on very low doses of Levophed. 3. Seizure activity. The plan is to repeat EEG off Versed and propofol this morning. Currently, he is on low levels of Versed at 2 mg. 4. Lactic acidosis most likely from muscle breakdown. This is either propofol induced or seizure/myoclonus induced. Converted propofol over to Versed. Increased lactate correlating with increased CK. 5. Hyperglycemia. Will carefully add insulin to control blood sugar; however, prevent hypoglycemia. 6. Nutrition. The patient has no bowel sounds, has had high residuals, may have been a reason for aspiration, and I do not hear any bowel sounds today despite being on Reglan. I have stopped the Reglan due to potential side effects; however, will start total parenteral nutrition (TPN) today. As nephrology has been consulted for sodium balance, I will defer the TPN to their prescription. The patient remains critically ill. Today, he has a worsening metabolic acidosis with a lactic acidosis as described above. Prognosis is guarded. If he is continuously having seizures; ultimately, I would recommend that he be transferred to a facility that has continuous EEG monitoring. ANGELICA
[2017-08-21] MEDS: NOREPINEPHRINE BITARTRATE 8 MG in D5W 500 ML IV SCH (09:20)
[2017-08-21 09:25] LABS: CALCIUM LEVEL 7.3 MG/DL (8.5-10.1); CREATININE FOR GFR 1.92 MG/DL (0.70-1.30); GLOMERULAR FILTRATION RATE 54.1 (>60); POTASSIUM SERUM 4.9 MEQ/L (3.5-5.1)
[2017-08-21 10:26] LABS: ALBUMIN 2.1 GM/DL (3.2-5.2); MAGNESIUM LEVEL 1.9 MG/DL (1.8-2.4); PHOSPHORUS LEVEL 3.8 MG/DL (2.5-4.9)
--- NOTE | 2017-08-21 12:22 | EEG ---
DATE OF PROCEDURE: 08/21/2017 REFERRING PHYSICIAN: Dr. Meliton Atkins DIAGNOSIS: Seizure. EEG NUMBER: [id number] HISTORY: The patient is a 26-year-old male with history of traumatic brain injury and frequent seizure-like spells. He is intubated on mechanical ventilator. He is currently on Dilantin, Keppra and morphine as needed. His propofol and Versed were stopped an hour before this EEG. This EEG was done to evaluate degree of encephalopathy and evaluate for epileptic potential. TECHNICAL DESCRIPTION: This digital EEG was recorded by 21 scalp, ear and two EKG electrodes and was reviewed in bipolar and referential montages following reformatting in 10-20 international electrode placement system. INTERPRETATION: The patient is intubated on a mechanical ventilator without sedation currently. His sedatives were stopped an hour before this EEG. Background rhythm consisted of 2-3 Hz delta activity measuring 15-30 microvolts in amplitude. Stage two sleep was recorded due to presence of K complexes which were symmetric bilaterally. Hyperventilation could not be performed. Photic stimulation remained unremarkable. EKG revealed normal sinus rhythm. Intermittent bilateral frontal and temporal muscle artifact was noted. No focal, lateralizing or epileptiform abnormalities were seen. No clinical or electrographic seizures were recorded. CONCLUSION: This EEG in an intubated and mechanically ventilated patient is abnormal due to presence of generalized slowing consistent with nonspecific diffuse cerebral dysfunction such as seen in encephalopathy due to multiple potential causes including toxic, metabolic, medication related, or multifocal structural brain abnormality. No focal or epileptiform abnormalities were seen. Compared to the patient's previous EEG, mild interval improvement is noted. Burst suppression pattern is no longer present. This can be due to medication changes. Clinical correlation is recommended.
[2017-08-21 12:29] LABS: CALCIUM LEVEL 7.7 MG/DL (8.5-10.1); CREATININE FOR GFR 1.78 MG/DL (0.70-1.30); POTASSIUM SERUM 4.9 MEQ/L (3.5-5.1)
[2017-08-21] MEDS ORDERED: SUCCINYLCHOLINE INJ 200 MG/10 ML VIAL (J0330) As Ordered ONE (12:30)
[2017-08-21] MEDS ORDERED: SUCCINYLCHOLINE INJ 200 MG/10 ML VIAL (J0330) IV STA (12:33)
--- NOTE | 2017-08-21 13:26 | REP ---
PORTABLE CHEST: AP supine portable view of the chest is performed and compared to prior study of 08/21/2017 at 6:56 a.m. There is an endotracheal tube. The tip is approximately 2.2 cm above the maria del rosario. Right central venous catheter is seen with the tip at the junction of the superior vena cava and right atrium. Nasogastric tube is not visualized. Bilateral infiltrates appear essentially unchanged. Signed by Rd Kennedy MD 08/21/2017 01:44 P
[2017-08-21 13:33] LABS: ABG pH (ARTERIAL) 7.314 UNITS (7.350-7.450)
[2017-08-21 13:34] LABS: ABG BASE EXCESS -6.6 (-2.0-2.0); ABG PARTIAL PRESSURE CO2 38.2 mmHg (35.0-45.0); ABG PARTIAL PRESSURE O2 53.9 mmHg (75.0-100.0); ABG STANDARD HCO3 18.9 MEQ/L (22.0-26.0); ABG TOTAL CO2 20.1 MEQ/L (22.0-29.0)
--- NOTE | 2017-08-21 14:08 | IPN ---
DATE: 08/21/2017 SUBJECTIVE: The patient was seen and examined at the bedside today in the morning in the intensive care unit (ICU). Last 24 hour events were noted. The patient continues to be intubated, sedated. The patient became septic yesterday because of possible aspiration pneumonitis. He was started on IV antibiotics. He got 2 liters of IV fluid bolus as well. He required Levophed for a few hours. Currently, he is hemodynamically stable. Renal function is improving with intravenous fluid hydration at this time. The patient's central venous pressure was noted to be around 22 this morning. Sodium level has improved to 140; however, despite being hemodynamically stable. The patient continues to have high lactic acid levels. The patient is not being fed at this time and critical care team requested TPN orders for this patient. REVIEW OF SYSTEMS: I was unable to do any review of systems on this patient, who is intubated and sedated. OBJECTIVE: VITAL SIGNS: Temperature is 100.1 degrees Fahrenheit, blood pressure is 140/54, pulse is 109, respiratory rate of 44, saturating 95% on 45% FiO2. Intake and output: Urine output recorded is 1.3 liter yesterday and 1.5 liter since overnight today. Weight on the bed scale yesterday was 74.5 kg. GENERAL: The patient is intubated and sedated. Eyes are closed. HEAD/NECK EXAM: Pupils are round and equally reactive to light on both sides. They were sluggish yesterday, pupillary response is better today; however, he does have conjunctival edema today. The patient an orogastric tube and endotracheal tube. NECK: Supple. There is no jugular venous distention (JVD) at this time. CARDIOVASCULAR: S1, S2. Tachycardia. No murmur, rub or gallop. RESPIRATORY: Slightly decreased breath sounds at the right base, otherwise no rales or rhonchi. ABDOMEN: Soft, positive bowel sounds. No organomegaly. No ascites. GENITOURINARY: The patient has an indwelling Zhou catheter. No scrotal edema. No hernia at this time. MUSCULOSKELETAL: No clubbing or cyanosis. No edema of the bilateral lower extremities. The patient does not follow commands. CENTRAL NERVOUS SYSTEM (AUTOMOBILE REPAIR SERVICE ESTIMATOR): The patient is sedated at this time. Slight grimace to painful stimuli. LYMPHATICS: No significant cervical, axillary or inguinal lymphadenopathy. SKIN: No rashes or ulcerations apart from bruises secondary to trauma on the face and forehead. LABORATORY REVIEW: CBC showed a WBC of 7.8, hemoglobin 12.6, platelets of 171, bands were 18%. Urine osmolarity this morning was 291. Urine creatinine is 44. Random urine sodium is 21. Urine chloride is 12. ABG done this morning showed a pH of 7.25, PCO2 of 38, PO2 of 63, bicarbonate 16 , oxygen saturation was 88%. BMP showed sodium 140, potassium 4.9, chloride 107, bicarbonate 23, BUN 20, creatinine 1.7, it was 1.9 yesterday, GFR 59, glucose 205, lactate 9.3, calcium 7.7. IMAGING: Chest x-ray done this morning showed right IJ central venous catheter and nasogastric tube were in satisfactory position. There were infiltrates to the right lung, which were more dense inferiorly. CURRENT INPATIENT MEDICATIONS: The patient's medications were all reviewed by me. His propofol was slowly weaned off yesterday. He continues to be on IV Versed. The patient briefly required norepinephrine infusion yesterday, which has been stopped. He continues to be on IV Keppra. The patient has IV normal saline and I have stopped the normal saline at this time. He was started on Zosyn 3.375 grams IV every 6 hours. There are no other changes in the medications today as compared with yesterday. ASSESSMENT: 26-year-old male with no significant past medical history with severe traumatic brain injury with cerebral contusions and subarachnoid hemorrhage. Nephrology service following the patient for management of acute kidney injury, electrolyte abnormality and total parenteral nutrition. The patient continues to be intubated and sedated and continues to have seizure activity. PLAN: 1. Acute kidney injury. It is multifactorial. Fractional Excretion of sodium was very low yesterday. The patient was having prerenal acute kidney injury, propofol might also have been contributing. He was started on IV fluid hydration. Renal function is improving. The patient has a good urine output at this time. Creatinine is down to 1.7; however, I stopped the IV fluids because I am starting the total parenteral nutrition on this patient. 2. Cerebral contusions and subarachnoid hemorrhage. The patient is being sedated with Versed at this time. Propofol was stopped yesterday because of high CPK levels, possibility of lowering the seizure threshold and acute kidney injury. Continue the Dilantin, Keppra and as needed Ativan as per neurology recommendations. Elevated lactate level is most likely because of the seizures. 3. Sepsis secondary to right lower lobe pneumonia. The patient briefly required pressors yesterday, however, he is hemodynamically stable. Central venous pressure was 22 this morning. IV fluids were stopped. Continue the Zosyn, which is renally dosed at this time. The patient cannot get tube feeds at this time. 4. Protein calorie malnutrition. The patient's albumin level is 2.1 today. He has not been fed ever since he came to the intensive care unit (ICU). The patient has a central line. I have ordered specially formulated total parenteral nutrition for his acute renal failure and electrolyte abnormality. TPN orders will be changed daily according to the patient's electrolyte needs. 5. Vent dependent respiratory failure. The patient was acidotic this morning and his FiO2 requirement also went up because of pneumonia. Vent management is as per pulmonary critical care service. 6. Seizure activity. Propofol was stopped yesterday. Continue to keep the sodium level 140 and above. Continue Keppra and Dilantin and Ativan as needed for seizures. 7. Elevated CPK levels. Muscle enzymes are high, most likely because of grade 2 seizures. The patient is adequately hydrated at this time. Continue the TPN at this time. No need of IV bicarbonate fluid administration at this time. The plan of care was discussed with the pulmonary critical care attending, Dr. Vivek Giles. I spent a total of 40 minutes in the critical care of this patient in the intensive care unit (ICU) today morning. MTDD
--- NOTE | 2017-08-21 14:21 | RO ---
DATE OF PROCEDURE: 08/21/2017 PREPROCEDURE DIAGNOSIS: Hypoxia. POSTPROCEDURE DIAGNOSIS: Hypoxia. PROCEDURE: Endotracheal intubation. PROCEDURALIST: Dr. Vivek Giles PATIENT CARE MANAGER: None ANESTHESIA: on versed gtt INDICATION: Air leak and possible migration of the tube. CONSENT: Deemed urgent, patient on sedation. DESCRIPTION OF PROCEDURE: I was urgently called to the patient's bedside for possible tube dislodgement. The patient's oxygen saturations were 90% on 45% FiO2. I performed bronchoscopy, placed the scope down. The tube was in the airway. I advanced the tube; however, the balloon was defective. Therefore, I removed the bronchoscope. After the bronchoscope was removed, I placed a tube exchanger in the tube. I started to remove the tube; however, the patient started to bite down. I then asked for a paralytic to be drawn up and took the tube out and bagged the patient. The patient was bagged up to a oxygen saturation of 96%. The GlideScope was used to view the posterior pharynx. There was minimal edema of the vocal cords with a grade 2 view. 8.0 endotracheal tube was easily passed into the airway and the stylus was removed. Placement was confirmed via auscultation and tidal CO2 monitoring. Chest x-ray also confirmed adequate positioning. No observed complications. ANGELICA
[2017-08-21 17:24] LABS: ANION GAP 13 MEQ/L (8-16); BLOOD UREA NITROGEN 19 MG/DL (7-18); CALCIUM LEVEL 7.2 MG/DL (8.5-10.1); CARBON DIOXIDE LEVEL 23 MEQ/L (21-32); CHLORIDE LEVEL 111 MEQ/L (98-107); GLOMERULAR FILTRATION RATE > 60.0 (>60); GLUCOSE, FASTING 130 MG/DL (70-105); POTASSIUM SERUM 4.9 MEQ/L (3.5-5.1); SODIUM LEVEL 147 MEQ/L (136-145)
[2017-08-21] MEDS ORDERED: SODIUM ACETATE IV SCH ×8 (18:00)
[2017-08-21] MEDS ORDERED: FAT EMULSION IV 20% 500 ML IV SCH (18:00)
[2017-08-21] MEDS ORDERED: SODIUM CHLORIDE IV SCH ×8 (18:00)
[2017-08-21] MEDS ORDERED: [UNRECOGNIZED DRUG - OTHER] IV SCH ×8 (18:00)
[2017-08-21] MEDS ORDERED: MIDAZOLAM INJ 2 MG/2 ML VIAL (J2250) IV ONE (18:30)
[2017-08-21 20:15] LABS: ANION GAP 10 MEQ/L (8-16); BLOOD UREA NITROGEN 19 MG/DL (7-18); CALCIUM LEVEL 7.2 MG/DL (8.5-10.1); CARBON DIOXIDE LEVEL 27 MEQ/L (21-32); CHLORIDE LEVEL 110 MEQ/L (98-107); CREATININE FOR GFR 1.38 MG/DL (0.70-1.30); GLOMERULAR FILTRATION RATE > 60.0 (>60); GLUCOSE, FASTING 176 MG/DL (70-105); POTASSIUM SERUM 4.5 MEQ/L (3.5-5.1); SODIUM LEVEL 147 MEQ/L (136-145)
[2017-08-21] MEDS: CHLORHEXIDINE ORAL RINSE 0.12%/15ML 120ML BOTTLE MT SCH (20:52)
[2017-08-21] MEDS: PANTOPRAZOLE SODIUM 40 MG in D5W MINI-BAG PLUS 50 ML IV SCH (21:23)
[2017-08-22] VITALS (26 sets, daily range): BP systolic 108–165; BP diastolic 56–100; O2SAT 94–95
[2017-08-22] MEDS: MIDAZOLAM HCL 100 MG in D5W 80 ML IV SCH (00:21)
[2017-08-22] MEDS: HumaLOG INSULIN (NovoLOG) PER UNIT SC SCH ×4 (00:38→17:16)
[2017-08-22 01:04] LABS: ANION GAP 4 MEQ/L (8-16); BLOOD UREA NITROGEN 19 MG/DL (7-18); CALCIUM LEVEL 7.2 MG/DL (8.5-10.1); CARBON DIOXIDE LEVEL 31 MEQ/L (21-32); CHLORIDE LEVEL 109 MEQ/L (98-107); CREATININE FOR GFR 1.27 MG/DL (0.70-1.30); GLOMERULAR FILTRATION RATE > 60.0 (>60); GLUCOSE, FASTING 243 MG/DL (70-105); POTASSIUM SERUM 4.1 MEQ/L (3.5-5.1); SODIUM LEVEL 144 MEQ/L (136-145)
[2017-08-22] MEDS: PANTOPRAZOLE SODIUM 40 MG in D5W MINI-BAG PLUS 50 ML IV SCH ×5 (02:32→22:12)
[2017-08-22] MEDS: PIPERACILLIN/TAZOBACTAM SOD 3.375 GM in D5W MINI-BAG PLUS 50 ML IV SCH ×4 (04:32→21:55)
[2017-08-22] MEDS: NS IV SCH ×3 (04:32→20:22)
[2017-08-22] MEDS: LEVETIRACETAM IV SCH ×3 (04:32→20:22)
[2017-08-22] MEDS: ACETAMINOPHEN 325 MG/10.15 ML UDC GT SCH ×4 (04:33→21:55)
[2017-08-22 05:27] LABS: ANION GAP 8 MEQ/L (8-16); BLOOD UREA NITROGEN 18 MG/DL (7-18); CALCIUM LEVEL 7.4 MG/DL (8.5-10.1); CARBON DIOXIDE LEVEL 30 MEQ/L (21-32); CHLORIDE LEVEL 113 MEQ/L (98-107); CREATININE FOR GFR 1.09 MG/DL (0.70-1.30); GLOMERULAR FILTRATION RATE > 60.0 (>60); GLUCOSE, FASTING 154 MG/DL (70-105); MAGNESIUM LEVEL 2.7 MG/DL (1.8-2.4); POTASSIUM SERUM 3.7 MEQ/L (3.5-5.1); SODIUM LEVEL 151 MEQ/L (136-145)
[2017-08-22 05:36] LABS: ADD MANUAL DIFFER YES; DIFF SLIDE NUMBER 48; MEAN CORPUSCULAR HEMOGLOBIN 34.4 pg (27.0-33.0); MEAN CORPUSCULAR VOLUME 93.4 fl (80.0-96.0); PLATELET COUNT, AUTOMATED 192 k/mm3 (150-450); RED CELL DISTRIBUTION WIDTH 12.6 % (11.5-14.5); WHITE BLOOD COUNT 12.7 K/mm3 (4.0-10.0)
[2017-08-22 05:37] LABS: MEAN CORPUSCULAR HGB CONC 36.9 g/dl (32.0-36.5)
[2017-08-22 05:51] LABS: ABG BASE EXCESS 3.9 (-2.0-2.0); ABG HCO3 28.7 MEQ/L (22.0-26.0); ABG PARTIAL PRESSURE CO2 43.7 mmHg (35.0-45.0); ABG PARTIAL PRESSURE O2 73.1 mmHg (75.0-100.0); ABG STANDARD HCO3 27.9 MEQ/L (22.0-26.0); ABG pH (ARTERIAL) 7.435 UNITS (7.350-7.450)
[2017-08-22 05:57] LABS: BANDS 13 % (< 11); EOSINOPHILS 1 % (0-5)
[2017-08-22 05:58] LABS: DOHLE BODIES 1+; TOXIC GRANULATION 1+; TOXIC VACUOLATION 1+
[2017-08-22] MEDS: PHENYTOIN INJ 250 MG/5 ML VIAL (J1165) IV SCH ×3 (06:23→21:55)
--- NOTE | 2017-08-22 07:51 | REP ---
Portable chest, 06:45 a.m., single AP view, the patient semi upright: Comparison is 08/21/2017. There are bilateral infiltrates with no significant interval change taking into account differences in radiographic technique. There are Cardiac size is upper normal for portable positioning. The endotracheal tube and right IJ central venous catheter remain in satisfactory positions, unchanged. There has been interval placement of a nasogastric tube terminates satisfactorily beneath the left hemidiaphragm. Signed by Rd Hodges MD 08/22/2017 07:43 A
[2017-08-22] MEDS: IPRATROPIUM 0.5MG/ALBUTEROL 2.5MG INH SOL UD 3ML (DUONEB)(J7620) NEB SCH ×4 (08:20→20:28)
[2017-08-22 08:57] LABS: ANION GAP 5 MEQ/L (8-16); BLOOD UREA NITROGEN 19 MG/DL (7-18); CALCIUM LEVEL 7.7 MG/DL (8.5-10.1); CARBON DIOXIDE LEVEL 34 MEQ/L (21-32); CHLORIDE LEVEL 112 MEQ/L (98-107); CREATININE FOR GFR 1.03 MG/DL (0.70-1.30); GLOMERULAR FILTRATION RATE > 60.0 (>60); GLUCOSE, FASTING 165 MG/DL (70-105); POTASSIUM SERUM 3.7 MEQ/L (3.5-5.1); SODIUM LEVEL 151 MEQ/L (136-145)
[2017-08-22] MEDS: CHLORHEXIDINE ORAL RINSE 0.12%/15ML 120ML BOTTLE MT SCH ×2 (09:21→20:23)
[2017-08-22] MEDS: HEPARIN SOD (PORCINE) 5000 UNITS/ML VIAL SQ SCH ×2 (09:22→20:23)
--- NOTE | 2017-08-22 11:10 | CCN ---
CRITICAL CARE NOTE DATE OF SERVICE: 08/22/2017 Critical care time was 1 hour. This excludes all procedures. The patient has had no visible seizure activity. He is off propofol for the past 24 hours. Continues on Versed, currently he has had six. His blood pressure has remained above 120 systolic, has not required any vasopressor therapy over the past 24 hours. Continues to have respiratory failure. He was hyperventilating on mechanical ventilation yesterday and was having high peak pressures having high positive end-expiratory pressures (PEEPs) I switched him over to a pressure regulated mode on the ventilator and he seems to be doing better on this. He remains on pressure regulated volume control (PRVC) in respiratory failure secondary to traumatic brain injury. He is occasionally moving feet and arms without any significant purposeful movements. Nephrology has been consulted for his electrolyte balance. Nephrology is currently prescribing his total parenteral nutrition (TPN). I am also thankful for neurology and their input regarding his seizure activity. Yesterday's EEG did not show any burst suppression or seizure activity, but did show some generalized slowing. There is blood secretions through his orogastric (OG) tube yesterday. This was a new OG tube that was placed. I believe it is most likely from OG tube trauma and there has been minimal amounts of blood loss, however, I placed on a Protonix drip yesterday. LABORATORY EVALUATION: Pulse is 109-112, blood pressure is 137/67 with a mean arterial pressure of 90, oxygen saturation is 96% on 0.40 FIO2, respiratory rate is 35. Temperature was 99.9, however, he is on a cooling blanket to maintain lower temperature. General: The patient is sedated on mechanical ventilation. Pupils are 5 mm and reactive to light. There is some conjunctival and scleral edema. The left lateral canthus laceration appears to be healing. Endotracheal tube is in good position, switched out to a 8.0 endotracheal tube yesterday. Tongue is midline. Mucous membranes are moist. Neck is supple. No tracheal deviation or mass. Right internal jugular (IJ) is in place without surrounding erythema or exudate. Lymph nodes: No cervical supraclavicular axillary adenopathy. Cardiac: Tachycardiac S1-S2, sinus tachycardia without murmur, rub or gallop. No elevated jugular venous pulse (JVP). Abdomen: Using abdominal muscles to breathe. Bowel sounds are hypoactive. There is no discernible hepatosplenomegaly. No masses or hernia. Extremities: No cyanosis or clubbing. Very minimal nonpitting edema in the upper extremities. Neurologic: He has no evidence of myoclonus this morning. With dorsiflexion of the foot there is no evidence of myoclonus. I did visualize nonpurposeful movement of his leg and arm. There is no observed seizure activity. He initiates his own breath on mechanical ventilation. Eye exam as mentioned above. Laboratory evaluation shows a arterial blood gas of 7.43, pCO2 of 44, pO2 of 73, sodium is 151 this morning up from 144, potassium 3.7, chloride is 112, bicarb of 34, BUN of 19, creatinine of 1.03, fasting glucose is elevated at 165. Lactic acid is pending. Calcium is 7.7 with an ionized calcium of 4.4, phosphorus was low at 1.0, magnesium and 2.7, again lactate and CK are pending. Chest x-ray shows right lower lobe infiltrate, left lung field is fairly clear. I believe there is been some improvement in the infiltrate. Endotracheal tube is in good position at 4 cm above the maria del rosario. IJ is in place with the tip of the right IJ in the superior vena cava (SVC). There is no pneumothorax. No evidence of barotrauma. IMPRESSION: 1. Respiratory failure secondary to traumatic brain injury. We will lighten sedation today and attempt to wean the patient off mechanical ventilation. 2. Sepsis with bandemia secondary to aspiration pneumonia on Zosyn. 3. Lactic acidosis. Arterial blood gases normalized this morning suggesting acidosis is improved. Lactate is pending. 4. Seizure activity. No currently witnessed seizure activity. We will lighten sedation and monitor. Will also check CK. 5. Hyperglycemia. Goal blood sugar [address] or [address] will place insulin in tube feeds. 6. Neuroprophylaxis with MPO boots. 7. Scleral conjunctival edema. I have prescribed Lacri-Lube. 8. Possible gastrointestinal (GI) bleed most likely from orogastric (OG) trauma. I have placed on Protonix drip. 9. Nutrition. Currently on total parenteral nutrition (TPN). We will initiate tube feeds at a slow rate today to see if he is able to tolerate this. 10. Deep venous thrombosis (DVT) prophylaxis with thromboembolic deterrent stockings (HEIDI) and David's. 11. Hypophosphatemia. Will replace in total parenteral nutrition (TPN).
[2017-08-22] MEDS: LACRILUBE (AKWA TEARS) OPHTH OINT 3.5 GM OU SCH ×2 (12:15→20:23)
--- NOTE | 2017-08-22 13:00 | IPN ---
DATE: 08/22/2017 SUBJECTIVE: Patient was seen and examined at the bedside today morning in the intensive care unit (ICU). The patient continues to be intubated and sedated at this time. He is otherwise hemodynamically stable. The patient was started on total parenteral nutrition yesterday. His sodium level has come up to 151 now. The patient is diuresing very well and his renal function has stabilized and creatinine is down to 1.03 now. There is no more seizure activity noted. His lactate level is also coming down. His metabolic acidosis has improved and he is actually slightly alkalotic at this time. The patient does have hypocalcemia and hypophosphatemia today morning which will be managed with total parental nutrition (TPN). The patient's family members were also present at the bedside, including his girlfriend, his mother and his grandmother. REVIEW OF SYSTEMS: The patient is unable to provide any reliable review of systems at this time because he is intubated and sedated. OBJECTIVE: VITAL SIGNS: Temperature this morning is 101.2 degrees Fahrenheit, blood pressure 136/93, pulse 105, respiratory rate 33, saturating 98% on the vent with 40% FiO2. INTAKE AND OUTPUT: Urine output recorded as 3.8 liters yesterday and 1 liter so far today since overnight. Weight on the bed scale is 76 kg. The patient's urine output at this time is around 70 mL/hr. PHYSICAL EXAMINATION: GENERAL: The patient is intubated, sedated. Eyes are closed. HEAD AND NECK EXAM: Pupils are equally round and reactive to light. There is some conjunctival edema. The patient has an OGT and ETT. Neck is supple. There is no jugular venous distention (JVD). The patient has a right internal jugular (IJ) triple lumen catheter. CARDIOVASCULAR: S1, S2. Tachycardia. No murmur, rub or gallop. RESPIRATORY: Chest is clear to auscultation bilaterally. There are slightly decreased breath sounds at the right base. ABDOMEN: Soft. Positive bowel sounds. No organomegaly. No ascites. GENITOURINARY: Patient has an indwelling Zhou catheter. Urine in the bag is clear at this time. MUSCULOSKELETAL: No clubbing or cyanosis. Pulses are 2+. There is no edema of the extremities. CENTRAL NERVOUS SYSTEM: The patient is sedated at this time. He does not following commands. He does withdraw to painful stimuli. LYMPHATICS: No significant cervical, axillary, inguinal lymphadenopathy. SKIN: No rashes or ulcerations at this time apart from bruises from recent trauma on the forehead. LAB REVIEW: CBC showed a WBC of 12.7, hemoglobin 12.2, and platelets of 192. ABG this morning showed a pH of 7.43, pCO2 of 43, pO2 of 73, bicarbonate 28.7, and oxygen saturation 94.2. BMP this morning showed sodium 151, potassium 3.7, chloride 112, bicarbonate 34, BUN 19, creatinine 1.03, and glucose 165. Lactic acid 2.2. Calcium 7.7. Ionized calcium this morning was 4.4. Phosphorus is 1. Magnesium 2.7. CK level is 6928. IMAGING: Chest x-ray done today morning showed interval placement of a NG tube, bilateral infiltrates in the lungs with no significant interval change. CURRENT INPATIENT MEDICATIONS: The patient's medications are all reviewed by me. He continues to be on Versed. He is currently on TPN at this time. He continues to be on IV Zosyn for aspiration pneumonitis. There is no other change in the medications today as compared with yesterday. 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 Nephrology service following the patient for management of acute kidney injury, electrolyte abnormalities, total parenteral nutrition management and keep the patient slightly hypernatremic because of cerebral edema. PLAN: 1. Acute kidney injury. It was most likely prerenal and may be associated with propofol infusion as well. Propofol was stopped two days ago. The patient initially was given IV fluids and he is currently on TPN. Renal function is improving. The patient has a very good urine output. His creatinine is down to 1.03 at this time. Continue to monitor at this time. 2. Cerebral contusions and subarachnoid hemorrhage. The patient is at this time sedated with Versed. Propofol was stopped. He is intubated for airway protection. Continue Dilantin and Keppra. Ativan is as needed. No seizure activity since yesterday. 3. Sepsis secondary to pneumonia. The patient likely has aspiration pneumonitis. He is currently on IV Zosyn which is renally dosed at this time. He is hemodynamically stable. If needed for gram positive coverage, the patient can be given vancomycin as well. The rest of the management is as per pulmonary service. 4. Management of parenteral nutrition for protein calorie malnutrition. The patient got the orogastric tube placed today. He has not been started on oral feeds at this time. He was started on parenteral nutrition yesterday. I have ordered a new TPN order with the lower sodium levels with a high phosphorus and no magnesium to adjust his electrolyte abnormalities. New TPN will be started at 80 mL/hr at around 6:00 p.m. today. 5. Vent dependent respiratory failure. It is secondary to brain injury to protect the airway and he has pneumonitis as well. His FiO2 requirement has come down to 40%. ABG on the vent is improving. The patient is actually alkalotic today. 6. Metabolic alkalosis. It is secondary to acetate in the total parenteral nutrition and improvement of his respiratory acidosis and improvement of renal function. I have decreased the acetate in the total parenteral nutrition. Bicarbonate level is expected to improve over the next 24 hours. 7. Seizure activity. The patient continues to be on Keppra and Dilantin. Ativan is only as needed. Seizure activity has decreased since yesterday afternoon. 8. Elevated CPK levels. CPK continues to be elevated. Must have been secondary to seizure activity. Possibility of rhabdomyolysis secondary to trauma as well; however, CPK is low at this time. Continue to monitor daily CPK levels. 9. Hypocalcemia. Ionized calcium level is 4.4. The patient is getting one gram of calcium in the TPN daily. It is expected to improve with the TPN. 10. Hypophosphatemia. Phosphorus level is 1. I have added 30 millimole of potassium phosphate in the total parenteral nutrition from today evening. 11. Hypermagnesemia. The patient got magnesium in the total parenteral nutrition. In today's orders, I am not giving any magnesium to the patient. I spent a total of 45 minutes in the critical care management of this patient in the intensive care unit (ICU).
[2017-08-22 13:15] LABS: ANION GAP 6 MEQ/L (8-16); BLOOD UREA NITROGEN 20 MG/DL (7-18); CALCIUM LEVEL 7.5 MG/DL (8.5-10.1); CARBON DIOXIDE LEVEL 33 MEQ/L (21-32); CHLORIDE LEVEL 108 MEQ/L (98-107); CREATININE FOR GFR 1.14 MG/DL (0.70-1.30); GLOMERULAR FILTRATION RATE > 60.0 (>60); GLUCOSE, FASTING 275 MG/DL (70-105); POTASSIUM SERUM 3.2 MEQ/L (3.5-5.1); SODIUM LEVEL 147 MEQ/L (136-145)
[2017-08-22] MEDS ORDERED: KCL 20MEQ IN 100ML SWI (KRUN) 20 MEQ in APPROPRIATE DILUENT 1 EA IV ONE ×2 (14:00)
[2017-08-22] MEDS ORDERED: SODIUM ACETATE IV SCH ×5 (18:00)
[2017-08-22] MEDS ORDERED: [UNRECOGNIZED DRUG - OTHER] IV SCH ×5 (18:00)
[2017-08-22] MEDS ORDERED: FAT EMULSION IV 20% 500 ML IV SCH (18:00)
[2017-08-22] MEDS ORDERED: SODIUM CHLORIDE IV SCH ×5 (18:00)
[2017-08-22 18:40] LABS: ANION GAP 7 MEQ/L (8-16); BLOOD UREA NITROGEN 21 MG/DL (7-18); CALCIUM LEVEL 7.6 MG/DL (8.5-10.1); CARBON DIOXIDE LEVEL 32 MEQ/L (21-32); CHLORIDE LEVEL 110 MEQ/L (98-107); CREATININE FOR GFR 1.24 MG/DL (0.70-1.30); GLOMERULAR FILTRATION RATE > 60.0 (>60); GLUCOSE, FASTING 331 MG/DL (70-105); POTASSIUM SERUM 3.8 MEQ/L (3.5-5.1); SODIUM LEVEL 149 MEQ/L (136-145)
[2017-08-22] MEDS: MIDAZOLAM INJ 2 MG/2 ML VIAL (J2250) IV PRN (21:55)
[2017-08-23] VITALS (29 sets, daily range): BP systolic 133–169; BP diastolic 71–119; O2SAT 95–99
[2017-08-23] MEDS: MIDAZOLAM HCL 100 MG in D5W 80 ML IV SCH ×2
[2017-08-23] MEDS: HumaLOG INSULIN (NovoLOG) PER UNIT SC SCH ×5 (01:04→23:31)
[2017-08-23] MEDS: MORPHINE 2 MG/ML 1ML SYRINGE IV PRN (01:42)
[2017-08-23] MEDS: PANTOPRAZOLE SODIUM 40 MG in D5W MINI-BAG PLUS 50 ML IV SCH ×4 (03:12→21:58)
[2017-08-23] MEDS: ACETAMINOPHEN 325 MG/10.15 ML UDC GT SCH ×4 (03:48→21:59)
[2017-08-23] MEDS: PIPERACILLIN/TAZOBACTAM SOD 3.375 GM in D5W MINI-BAG PLUS 50 ML IV SCH ×4 (03:49→23:17)
[2017-08-23] MEDS: LEVETIRACETAM IV SCH ×2 (03:49→12:21)
[2017-08-23] MEDS: NS IV SCH ×2 (03:49→12:21)
[2017-08-23 05:11] LABS: IONIZED CALCIUM 4.3 MG/DL (4.5-5.3)
[2017-08-23 05:22] LABS: ABG HCO3 31.3 MEQ/L (22.0-26.0); ABG PARTIAL PRESSURE CO2 43.2 mmHg (35.0-45.0); ABG PARTIAL PRESSURE O2 70.4 mmHg (75.0-100.0); ABG STANDARD HCO3 30.8 MEQ/L (22.0-26.0); ABG TOTAL CO2 32.6 MEQ/L (22.0-29.0); ABG pH (ARTERIAL) 7.478 UNITS (7.350-7.450)
[2017-08-23 05:34] LABS: MAGNESIUM LEVEL 2.3 MG/DL (1.8-2.4); PHOSPHORUS LEVEL 2.9 MG/DL (2.5-4.9)
[2017-08-23 05:43] LABS: ADD MANUAL DIFFER YES; MEAN CORPUSCULAR HEMOGLOBIN 33.6 pg (27.0-33.0); MEAN CORPUSCULAR HGB CONC 35.7 g/dl (32.0-36.5); MEAN CORPUSCULAR VOLUME 93.9 fl (80.0-96.0); PLATELET COUNT, AUTOMATED 174 k/mm3 (150-450); RED CELL DISTRIBUTION WIDTH 12.7 % (11.5-14.5); WHITE BLOOD COUNT 16.6 K/mm3 (4.0-10.0)
[2017-08-23 05:48] LABS: ANION GAP 6 MEQ/L (8-16); BLOOD UREA NITROGEN 25 MG/DL (7-18); CALCIUM LEVEL 7.5 MG/DL (8.5-10.1); CARBON DIOXIDE LEVEL 33 MEQ/L (21-32); CHLORIDE LEVEL 110 MEQ/L (98-107); CREATININE FOR GFR 1.06 MG/DL (0.70-1.30); GLOMERULAR FILTRATION RATE > 60.0 (>60); GLUCOSE, FASTING 254 MG/DL (70-105); SODIUM LEVEL 149 MEQ/L (136-145)
[2017-08-23] MEDS: PHENYTOIN INJ 250 MG/5 ML VIAL (J1165) IV SCH ×3 (06:03→21:59)
[2017-08-23 06:34] LABS: BANDS 5 % (< 11)
[2017-08-23 06:35] LABS: DOHLE BODIES 1+; TOXIC GRANULATION 1+
[2017-08-23 06:36] LABS: ANISOCYTOSIS 1+
[2017-08-23 06:53] LABS: OSMOLALITY URINE 615 MOSM/KG (500-800)
[2017-08-23] MEDS: IPRATROPIUM 0.5MG/ALBUTEROL 2.5MG INH SOL UD 3ML (DUONEB)(J7620) NEB SCH ×4 (07:25→20:29)
--- NOTE | 2017-08-23 07:40 | REP ---
Portable chest, 06:40 a.m., single AP view, the patient semi upright: Comparison is 2016. There is a large right lung infiltrate involving the upper lower lobes, significantly increased. There is a mild interstitial infiltrative pattern throughout the left lung, unchanged. The endotracheal tube, nasogastric tube and right IJ central venous catheter remain in satisfactory locations, unchanged. Impression: Significantly increased right lung infiltrate. Signed by Rd Hodges MD 08/23/2017 07:32 A
[2017-08-23] MEDS: HEPARIN SOD (PORCINE) 5000 UNITS/ML VIAL SQ SCH ×3 (09:47→21:58)
[2017-08-23] MEDS: LACRILUBE (AKWA TEARS) OPHTH OINT 3.5 GM OU SCH ×2 (09:59→23:16)
--- NOTE | 2017-08-23 10:11 | REP ---
Head CT without contrast: History: Head trauma. Coma. Comparison head CT study August 20, 2017. CT findings: There is no evidence of acute intracranial hemorrhage. The size of the right lateral ventricle is improved today compared to the CT study from August 20, 2017. Kennedy-white differentiation pattern is preserved. No acute infarction is appreciated. No midline shift or extra-axial fluid collection is seen. Impression: Improved lateral ventricle size today compared to the most recent prior study. No other new finding. No intracranial hemorrhage seen. Signed by Phong Santana MD 08/23/2017 03:18 P
[2017-08-23] MEDS: CHLORHEXIDINE ORAL RINSE 0.12%/15ML 120ML BOTTLE MT SCH ×2 (10:32→22:00)
--- NOTE | 2017-08-23 11:53 | CCN ---
DATE: 08/23/2017 The patient is seen in the intensive care unit intubated, mechanically ventilated, critically ill. This is hospital day 7. The patient is displaying spontaneous respiratory efforts this morning, but is quite tachypneic with what appears to be myoclonic muscle activity. His temperature is 101, pulse rate 107, respirations 36, blood pressure 140/71. Intake and output for the past 24 hours 3267 in and 2815 out; since midnight 1160 in and 1465 out. At bedside, he is ill appearing. His endotracheal tube is in good position as is the orogastric tube. Neck is supple. No meningismus. Heart sounds regular. Breath sounds mildly coarse. No focal sounds are appreciated. Chest is symmetric. Moves symmetrically with respiratory efforts. Abdomen is soft. There are bowel sounds in the right lower quadrant. No palpable mass. Extremities are cool. Pulses are palpable. DIAGNOSTIC STUDIES: White count 16.6, hemoglobin 12, hematocrit 33, platelet count 174,000. Differential white cell count shows 81% neutrophils. Sodium is 149, potassium 4.0, chloride 110, CO2 33, BUN 25, creatinine 1.06, glucose 254, calcium 7.5. PH is 7.47, pCO2 43, pO2 70. Chest x-ray shows increased infiltrate in the right side. EEG is pending as is an updated CT scan of the head. The primary problem requiring critical attention is acute respiratory failure. We will change the mechanical ventilatory mode to pressure support and maintain oxygen saturation and end tidal CO2. Traumatic brain injury. The control of seizures is in question and EEG is underway at this point and a CT scan has been performed. Neuro evaluation is pending. Infectious disease. There is concern that the chest x-ray is showing more infiltrate. Gas exchange and ventilation are however better. We will obtain a sputum culture. The patient has been on Zosyn for 4 days. Vancomycin has been added on by nephrology. Nutritional support. The patient is tolerating tube feedings at 30 mL/hour. Will increase to 60 in hopes of weaning away from TPN. Glycemic control. Will change to Glucerna in tube feedings and continue close monitoring. Deep vein thrombosis (DVT) and ulcer prophylaxis are in place. The patient's condition is critical. Prognosis is guarded. I have updated the family with regard to the findings and I have reviewed the case with nephrology and neurosurgery. 1 hour and 15 minutes was spent in the provision of bedside critical care and coordination exclusive of procedure time.
[2017-08-23] MEDS ORDERED: MIDAZOLAM INJ 2 MG/2 ML VIAL (J2250) IV ONE (12:00)
[2017-08-23] MEDS ORDERED: VANCOMYCIN HCL 1,000 MG, VIAL MATE ADAPTER 1 EACH in D5W 250 ML IV ONE (12:00)
--- NOTE | 2017-08-23 13:18 | PHACANCOPD ---
PHARMACY VANCOMYCIN DOSING Pt Demographics Demographics Patient Age:26 , Weight:76.400 , Gender: male Adjusted Body Weight Date: 08/23/17, Adjusted Body Weight: Kg Events Past 24 Hours Events Past 24 Hours: YES: Fever, Elevation in WBC, NO: Dialysis, Diuretic Therapy, Change in CrCl, Pending Diagnostics, Pending Procedures, Other Vancomycin Vancomycin Target Ranges: 15-20 mcg/ml Vancomycin Load Y/N: Yes Load Dose Date Time Vancomycin Load Dose: 2G Date: 08/23 Time: 1200 Vancomycin Dose Date: 08/23/17. Current Vancomycin Dose: [1G Q8H] Intermittent Dosing?: No Labs Labs Vital Signs Label Value Date Time Patient Temperature 102.0 degrees F 08/23/17 1200 Temperature Source Rectal 08/23/17 1200 Patient Temperature 102.0 degrees F 08/23/17 1100 Temperature Source Rectal 08/23/17 1100 Patient Temperature 101.8 degrees F 08/23/17 1000 Temperature Source Rectal 08/23/17 1000 Item Value Date Time White Blood Count 12.7 K/mm3 H 08/22/17 0453 White Blood Count 7.8 K/mm3 08/21/17 0457 White Blood Count 16.6 K/mm3 H 08/23/17 0457 Creatinine 1.14 MG/DL 08/22/17 1207 Creatinine 1.24 MG/DL 08/22/17 1749 Creatinine 1.06 MG/DL 08/23/17 0457 Creatinine Clearance Date:08/23/17. Creatinine Clearance: [113.88]. Assessment and Plan Maintaining Current Dose?: Yes Reason for dose change: No Dose Change Pharmacist Note Pharmacist Note Date: 08/23/17. Pharmacist note: Pt. is a 26 year old male who was january to ED with a TBI. Pt. has been intubated since 08/17 and is now presenting with increasing lobe infiltrates. He is being treated for potential HAP. Pt. was in [facility] but this has been reversed and now has good renal function. Pt. was given Vancomycin 2G LD @1200. We will continue him on 1G q8h. I have scheduled a trough for tomorrow just before 4th dose. We will continue to monitor and adjust dose as needed. CHRIS LEE PHARMACY Aug 23, 2017 13:18
--- NOTE | 2017-08-23 13:46 | CCN ---
DATE: 08/23/2017 The patient was seen and examined at the bedside this morning in the ICU. The last 24-hour events were noted. The patient continues to be intubated at this time. He just got a CT scan of the head done this morning, which showed improvement in the cerebral edema. The patient is otherwise hemodynamically stable but he is tachycardic. Central venous pressure (CVP) this morning was around 8. His renal function is stable at this time. Creatinine is at 1.6 now. The patient continues to be on total parenteral nutrition (TPN) at this time. However, he was started on tube feeds and his tube feeds are running at 30 mL an hour at this time. The patient's white cell count continues to get worse at 60.6 now. Chest x-ray done this morning showed worsening of the infiltrate especially on the right side. REVIEW OF SYSTEMS: Patient is unable to provide any reliable review of systems to me at this time. He is intubated and sedated. OBJECTIVE: VITAL SIGNS: Temperature 102 degrees Fahrenheit, blood pressure 137/74, pulse 109, respiratory rate 36, saturating 100% on the vent with 40% FiO2. Intake and output: Urine output recorded yesterday was 2.4 liters. Urine output recorded so far today since overnight is 1.4 liters. Weight on the bed scale was 76.4 kg. GENERAL: The patient is intubated, sedated, eyes are closed. HEAD/NECK EXAM: Pupils equal, round, and reactive to light. There is some conjunctival edema. The patient has an (orogastric and esophagogastric) OGD and EGD. Neck is supple. Patient has a right IJ triple lumen catheter. CARDIOVASCULAR: S1 and S2. Tachycardia. No murmur, rub or gallop. RESPIRATORY: Decreased breath sounds at the right base. Otherwise, no rales or rhonchi. ABDOMEN: Soft, positive bowel sounds. No organomegaly. No ascites. : The patient has an indwelling Zhou catheter. Urine in the bag is clear. There is no scrotal edema. MUSCULOSKELETAL: No clubbing or stenosis. Pulses are 2+. There is no edema of the extremities. 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 He does not follow commands. Some grimace to painful stimuli. SKIN: No rashes or ulcers apart from bruises on the face. LAB REVIEW: CBC showed a WBC 16.6, hemoglobin 12, platelets of 174. Urine osmolarity this morning was 615. Urine sodium 73. ABG this morning showed pH 7.47, pCO2 43, pO2 70, bicarbonate 31, oxygen saturation 93.9%. BMP showed sodium 149, potassium 4, chloride 110, bicarbonate 33, BUN 25, creatinine 1.06, ionized calcium 4.3, phosphorus 2.9, magnesium 2.3. IMAGING: CT scan of the head done this morning showed improved lateral ventricle size compare with the most recent prior CT scan. Preserved le/white matter differentiation. A chest x-ray done this morning showed significantly increased right lung infiltrate. CURRENT INPATIENT MEDICATIONS: The patient continues to be on IV TPN at this time. He continues to be on IV Keppra, IV Zosyn. Vancomycin was added this morning by me for Gram positive coverage. There is no other change in the medications today as compared with yesterday. ASSESSMENT: 26-year-old -Japanese male with no significant past medical history admitted to ICU at this time with a severe traumatic brain injury causing cerebral contusion and subarachnoid hemorrhage having a seizure episodes, which are controlled with multiple antiseizure medications. Electrical Experimental Mechanic service following the patient for management of acute kidney injury, electrolyte abnormalities, total parenteral nutrition and to keep the patient slightly hypernatremic because of cerebral edema. PLAN: 1. Acute kidney injury: It was prerenal and secondary to most likely propofol infusion. Renal function improved after stopping propofol and IV fluids. IV fluids are on hold at this time. He is currently on TPN at this time. Creatinine has improved to 1.06 now. 2. Cerebral contusions and subarachnoid hemorrhage: The patient got a repeat CT scan done this morning which shows improvement of the cerebral edema. There is preservation of the le/white matter differentiation. The rest of the management is as per neurosurgery. 3. Sepsis secondary to health care associated pneumonia: The patient was on IV Zosyn, IV vancomycin was added this morning because of persistent leukocytosis and for Gram positive coverage. The patient is pending sputum culture by pulmonary service. CVP was 8 this morning, which is optimal. 4. Management of parenteral nutrition. The patient currently is on TPN. I have ordered another TPN for this evening. I have decreased the rate to 70 mL an hour. The patient was started on tube feeds as well. If he tolerates the tube feeds and there are no residues then TPN will be slowly weaned off. 5. Vent dependent respiratory failure: The patient has FiO2 requirement at this time of 40%. His volume status is optimized at this time. His pH on the vent is actually slightly alkalotic. The rest of the management is per pulmonary service. 6. Metabolic alkalosis: The patient was getting acetate in the TPN. I have stopped the acetate in the next TPN order. Metabolic alkalosis is expected to improve. 7. Seizure activity: Continue Dilantin and Keppra as per neurology recommendations. Versed is as needed. Latest EEG done on 08/21/2017 was negative for seizures. 8. Hypocalcemia: The patient will get 1 gram of calcium in the TPN and calcium level is expected to improve. 9. Hypernatremia: The patient is being deliberately kept hypernatremic with sodium between 145-150 to prevent further cerebral edema. Continue sodium of 35 mEq in the total parenteral nutrition. I spent a total of 40 minutes in the critical care of this patient in the intensive care unit (ICU) this morning.
[2017-08-23] MEDS: VANCOMYCIN HCL 1,000 MG, VIAL MATE ADAPTER 1 EACH in D5W 250 ML IV SCH ×2 (14:18→21:59)
--- NOTE | 2017-08-23 15:02 | EEG ---
DATE OF PROCEDURE: 08/23/2017 REFERRING PHYSICIAN: Dr. Meliton Atkins DIAGNOSIS: Seizures, coma. EEG NUMBER: [id number] HISTORY: Patient is a 26-year-old man with severe traumatic brain injury, seizures and unconsciousness. This EEG was done to rule out epileptic potential and assess degree of encephalopathy. He is currently on Dilantin, Keppra and has been off Versed for 15 hours. He remains unresponsive. TECHNICAL DESCRIPTION: This digital EEG was recorded by 21 scalp, ear and two EKG electrodes and was reviewed in bipolar and referential montages following reformatting in 10-20 international electrode placement system. INTERPRETATION: Patient was noted to be in drowsy state throughout this EEG. The patient is intubated on mechanical ventilator without sedation. Background rhythm consisted of 2-3 Hz delta activity measuring 15-30 microvolts in amplitude. Intermittent beta activity and sleep spindles were noted in frontal and central head regions. Hyperventilation could not be performed. Photic stimulation remained unremarkable. EKG revealed normal sinus rhythm. No epileptiform abnormalities were seen. No clinical or electrographic seizures were recorded. CONCLUSION: This EEG in an intubated patient without sedation is abnormal due to presence of generalized slowing and disorganization of background consistent with nonspecific diffuse cerebral dysfunction such as seen in encephalopathy due to multiple potential causes including toxic, metabolic, medication related, infectious or multifocal structural brain abnormalities. No epileptiform abnormalities were seen. No interval change was noted compared to the patient's previous EEG. Clinical correlation is recommended.
[2017-08-23] MEDS ORDERED: SODIUM CHLORIDE IV SCH ×6 (18:00)
[2017-08-23] MEDS ORDERED: [UNRECOGNIZED DRUG - OTHER] IV SCH ×6 (18:00)
[2017-08-23] MEDS ORDERED: FAT EMULSION IV 20% 500 ML IV SCH (18:00)
[2017-08-23] MEDS ORDERED: POTASSIUM PHOSPHATE IV SCH ×6 (18:00)
[2017-08-23] MEDS ORDERED: HumaLOG INSULIN (NovoLOG) PER UNIT SC SCH (18:00)
--- NOTE | 2017-08-23 19:18 | REP ---
MRI BRAIN WITHOUT CONTRAST: TECHNIQUE: Multiple sequences obtained in the sagittal and axial planes without IV contrast. Ventricles are normal in size and position with no midline shift. Kennedy/white differentiation is well maintained without significant cerebral edema identified. Multiple petechial hemorrhages are seen in the bilateral frontal and parietal regions. I see no extra-axial hemorrhage. Diffuse fluid is seen in the sphenoid sinuses and there is moderate fluid and mucosal thickening in the bilateral ethmoid and maxillary sinuses. IMPRESSION: Multiple bilateral petechial hemorrhages in the frontal and parietal regions. Signed by Rd Kennedy MD 08/23/2017 07:27 P
[2017-08-24] VITALS (21 sets, daily range): BP systolic 138–167; BP diastolic 78–121; O2SAT 97–100
[2017-08-24] MEDS ORDERED: levETIRAcetam INJection 750 MG in D5W 100 ML IV SCH ×2
[2017-08-24] MEDS: MIDAZOLAM INJ 2 MG/2 ML VIAL (J2250) IV PRN ×2 (00:14→04:23)
[2017-08-24] MEDS: PANTOPRAZOLE SODIUM 40 MG in D5W MINI-BAG PLUS 50 ML IV SCH ×3 (02:04→12:51)
[2017-08-24] MEDS: ACETAMINOPHEN 325 MG/10.15 ML UDC GT SCH ×3 (04:33→15:15)
[2017-08-24] MEDS: PIPERACILLIN/TAZOBACTAM SOD 3.375 GM in D5W MINI-BAG PLUS 50 ML IV SCH ×2 (04:34→10:54)
[2017-08-24] MEDS ORDERED: BISACODYL 10 MG SUPP As Ordered ONE (05:10)
[2017-08-24] MEDS ORDERED: BISACODYL 10 MG SUPP PR ONE (05:15)
[2017-08-24] MEDS: MORPHINE 2 MG/ML 1ML SYRINGE IV PRN ×3 (05:26→17:20)
[2017-08-24] MEDS: VANCOMYCIN HCL 1,000 MG, VIAL MATE ADAPTER 1 EACH in D5W 250 ML IV SCH ×2 (06:01→15:12)
[2017-08-24] MEDS: PHENYTOIN INJ 250 MG/5 ML VIAL (J1165) IV SCH (06:02)
[2017-08-24 06:14] LABS: ABG BASE EXCESS 3.5 (-2.0-2.0); ABG HCO3 26.5 MEQ/L (22.0-26.0); ABG PARTIAL PRESSURE O2 145.3 mmHg (75.0-100.0); ABG STANDARD HCO3 27.6 MEQ/L (22.0-26.0); ABG TOTAL CO2 27.6 MEQ/L (22.0-29.0); ABG pH (ARTERIAL) 7.497 UNITS (7.350-7.450)
[2017-08-24 06:28] LABS: IONIZED CALCIUM 4.5 MG/DL (4.5-5.3)
[2017-08-24 06:32] LABS: BASO # 0.1 K/mm3 (0.0-0.2); BASO % 0.4 % (0.0-1.0); EOS # 0.1 K/mm3 (0.0-0.50); EOS % 0.7 % (0.0-3.0); LARGE UNSTAINED CELL # 0.3 K/mm3 (0.0-0.4); LARGE UNSTAINED CELL % 1.9 % (0.0-4.0); LYMPH % 5.9 % (24.0-44.0); MEAN CORPUSCULAR HEMOGLOBIN 32.9 pg (27.0-33.0); MEAN CORPUSCULAR HGB CONC 34.4 g/dl (32.0-36.5); MEAN CORPUSCULAR VOLUME 95.7 fl (80.0-96.0); MONO % 6.2 % (0.0-5.0); NEUTROPHILS % 84.8 % (36.0-66.0); PLATELET COUNT, AUTOMATED 162 k/mm3 (150-450); RED CELL DISTRIBUTION WIDTH 12.7 % (11.5-14.5); WHITE BLOOD COUNT 16.5 K/mm3 (4.0-10.0)
[2017-08-24] MEDS: HumaLOG INSULIN (NovoLOG) PER UNIT SC SCH ×2 (06:41→13:46)
[2017-08-24 06:58] LABS: ANION GAP 9 MEQ/L (8-16); BLOOD UREA NITROGEN 26 MG/DL (7-18); CALCIUM LEVEL 7.9 MG/DL (8.5-10.1); CARBON DIOXIDE LEVEL 29 MEQ/L (21-32); CHLORIDE LEVEL 110 MEQ/L (98-107); GLOMERULAR FILTRATION RATE > 60.0 (>60); GLUCOSE, FASTING 266 MG/DL (70-105); POTASSIUM SERUM 4.4 MEQ/L (3.5-5.1); SODIUM LEVEL 148 MEQ/L (136-145)
[2017-08-24 07:01] LABS: MAGNESIUM LEVEL 2.3 MG/DL (1.8-2.4)
[2017-08-24 07:27] LABS: PHOSPHORUS LEVEL 4.3 MG/DL (2.5-4.9)
[2017-08-24 07:53] LABS: OSMOLALITY URINE 586 MOSM/KG (500-800)
[2017-08-24] MEDS: IPRATROPIUM 0.5MG/ALBUTEROL 2.5MG INH SOL UD 3ML (DUONEB)(J7620) NEB SCH ×3 (08:07→15:36)
[2017-08-24] MEDS ORDERED: MORPHINE 4 MG/ML 1ML SYRINGE IV ONE (08:30)
[2017-08-24] MEDS: LACRILUBE (AKWA TEARS) OPHTH OINT 3.5 GM OU SCH (09:17)
[2017-08-24] MEDS: HEPARIN SOD (PORCINE) 5000 UNITS/ML VIAL SQ SCH (09:17)
[2017-08-24] MEDS: CHLORHEXIDINE ORAL RINSE 0.12%/15ML 120ML BOTTLE MT SCH (09:17)
[2017-08-24] MEDS ORDERED: METOCLOPRAMIDE INJ 10MG/2ML VIAL (J2765) IV SCH (10:00)
[2017-08-24] MEDS ORDERED: MOM 30ML SUSPENSION UDC PO PRN (10:45)
[2017-08-24] MEDS ORDERED: LACOSAMIDE 10MG/ML 20ML VIAL (VIMPAT) (C9254) IV SCH (11:00)
--- NOTE | 2017-08-24 11:55 | REP ---
PORTABLE CHEST: AP portable view of the chest is performed and compared to prior study of 08/23/2017. Previously noted bilateral infiltrates have improved somewhat, still with significant residual in the right lung. Cardiomediastinal silhouette is not definitely changed. Once again there is an endotracheal tube, a nasogastric tube and right central venous catheter noted. IMPRESSION: Improved infiltrates bilaterally. Signed by Rd Kennedy MD 08/24/2017 07:32 P
[2017-08-24] MEDS ORDERED: levETIRAcetam INJection 1,000 MG in D5W 100 ML IV SCH (12:00)
[2017-08-24] MEDS ORDERED: MIDAZOLAM INJ 2 MG/2 ML VIAL (J2250) As Ordered ONE (12:28)
--- NOTE | 2017-08-24 12:28 | CCN ---
DATE: 08/24/2017 CRITICAL CARE NOTE The patient is seen in the intensive care unit, intubated, mechanically ventilated, critically ill. He was weaned to pressure support mode yesterday, and his volumes are acceptable. Oximetry and end tidal CO2 are monitored on a continuous basis and are within reasonable limits. He was intolerant of tube feedings through the night and has not had a bowel movement. He has intermittent shivering or trismus. At bedside, his temperature is 101.1, maximum temperature (T max) 102, pulse rate 108, respirations 44, blood pressure 148/99. Intake and output for the past 24 hours: 3795 in, 3630 out; since midnight, 432 in and 1400 out. At bedside, he is ill appearing. He has corneal edema. Orogastric and endotracheal tubes are in good position. He has been biting on the endotracheal tube. Neck is supple. No meningismus. Jugular veins not distended. Heart: Sounds regular without appreciable murmur. Breath sounds: Mildly coarse but clear. No focal sounds. No dullness. Abdomen is firm but not tense. Bowel sounds are appreciable in all four quadrants. No palpable mass. Extremities are flaccid. There does appear to be some movement with command. Family believes that he does move to command. He has been displaying intermittent generalized shivering versus generalized trismus. Diagnostic studies reviewed. His sodium is 148, potassium 4.4, chloride 110, CO2 29, BUN 26, creatinine 1, glucose 266. His calcium is 7.9, white count 16.5, hemoglobin 12.9, hematocrit 37, platelet count 162,000. Differential: White cell count shows 84.8 neutrophils. Arterial blood gases show a pH of 7.49, pCO2 35, pO2 145 on pressure support mode 12 over 5, FiO2 0.3. Chest x-ray shows improvement in aeration of the right side. Formal report is pending. Tubes and lines are in good position. MEDICATIONS REVIEW: This is a day #7 of Zosyn, day #2 vancomycin. He is receiving antiepileptics from the neurology service. Total parenteral nutrition (TPN) and electrolytes are being prescribed by nephrology. The primary problem requiring critical attention is acute respiratory failure. Arterial blood gases are acceptable on pressure support. Pneumonia. The patient's white cell count is down slightly. Chest x-ray is much improved. Continue with vancomycin, Zosyn. Temperature. The patient's temperature curve suggests a central cause rather than infection. Nutritional support. The patient has been intolerant to tube feedings. Will begin Reglan. Constipation. Begin cathartics. Traumatic brain injury. There is no seizure activity appreciated on EEG. Edema was not present on the MRI. The patient is attended by neurosurgery and followed closely by neurology. Glycemic control. The patient may benefit from increase in insulin in the TPN perhaps. Deep vein thrombosis (DVT) and ulcer prophylaxis are in place. The patient's condition remains critical. Prognosis is guarded. Extensive discussions have been held with the patient's family to update them on his status. I have also reviewed the case with neurosurgery and nephrology. 1 hour and 47 minutes was spent in the provision of bedside critical care and coordination.
[2017-08-24] MEDS ORDERED: MIDAZOLAM INJ 2 MG/2 ML VIAL (J2250) IV STA (12:43)
[2017-08-24 13:17] LABS: ABG BASE EXCESS -0.3 (-2.0-2.0); ABG HCO3 24.5 MEQ/L (22.0-26.0); ABG PARTIAL PRESSURE CO2 40.4 mmHg (35.0-45.0); ABG PARTIAL PRESSURE O2 54.2 mmHg (75.0-100.0); ABG TOTAL CO2 25.7 MEQ/L (22.0-29.0)
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
--- NOTE | 2017-08-24 15:04 | IPN ---
DATE: 08/24/2017 Mr. Kam is seen this morning on his bedside in intensive care unit. He remains intubated. The patient is currently being treated for closed traumatic brain injury and respiratory failure with right-sided pneumonia and recurrent seizures. Nephrology service was involved due to electrolyte abnormalities and the need for keeping his sodium level high. He also had mild acute renal failure, which has already improved. Yesterday, nasogastric tube feeding was tried; however, the patient did not tolerate it well. Family reports that he has opened eyes and moved his upper limbs slightly. Overall he has been non-interactive so far. PHYSICAL EXAMINATION: Temperature 101.1 degrees Fahrenheit, heart rate 120 per minute, respiratory rate 46 per minute, blood pressure 155/90 mm of mercury, and oxygen saturation 92%. His eyes are closed. Neck veins are not abnormally distended. Endotracheal tube and nasogastric tubes are in place. Heart sounds are tachycardiac and lungs with dependent basilar rales. Abdomen is somewhat full, and bowel sounds are present. Extremities have no cyanosis or clubbing. There is no peripheral edema noted. Neurologically the patient remains mostly non-responsive. IMAGING STUDIES: The patient had an MRI brain yesterday, which showed multiple bilateral petechial hemorrhages in the frontal and parietal regions. Chest x-ray done this morning showed improved infiltrates bilaterally. Lab work from today showed sodium level 148, potassium 4.4, BUN is 26, creatinine 1.0, glucose 266, calcium 7.9, phosphorus 4.3, and magnesium 2.3. Most recent blood gas showed a pH of 7.49, pCO2 of 35, pO2 of 145, and bicarbonate 27.4. PROBLEMS: 1. Acute renal failure. Kidney function has improved. This is probably his baseline function. Slightly elevated BUN is most likely related to steroids. At present, the patient has reasonably well-compensated volume status. 2. Hypernatremia. Per neurosurgery request, his sodium level has been kept slightly on the high side in order to prevent brain edema. Neurosurgeon has discussed with me this morning, and he feels that we do not need to keep sodium level higher than normal anymore. We will continue to monitor his electrolytes and adjust his total parenteral nutrition (TPN) according to the need. 3. Nutrition. The patient has not tolerating tube feeding. We will continue with TPN, and his TPN orders are written. We have cut down the sodium content by 5 mEq/L. 4. Pneumonia and fever. The patient is currently being treated for bilateral infiltrates. He remains afebrile. His vancomycin level is pending. He is currently on Zosyn and vancomycin. 5. Respiratory failure. The patient remains on the ventilator and is being followed by pulmonary service. All other issues are being addressed by neurosurgery and critical care.
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
[2017-08-24] MEDS ORDERED: POTASSIUM PHOSPHATE IV SCH ×4 (18:00)
[2017-08-24] MEDS ORDERED: SODIUM CHLORIDE IV SCH ×4 (18:00)
[2017-08-24] MEDS ORDERED: VANCOMYCIN HCL 1,000 MG, VIAL MATE ADAPTER 1 EACH in D5W 250 ML IV SCH (18:00)
[2017-08-24] MEDS ORDERED: FAT EMULSION IV 20% 500 ML IV SCH (18:00)
[2017-08-24] MEDS ORDERED: [UNRECOGNIZED DRUG - OTHER] IV SCH ×4 (18:00)
== END 2017-08-24 17:45 | disposition short-term general hospital (02) | DRG 82 ==
LOC: M ED 02:09 → EDBD 02:09 → M ED INP 04:50 → M ICU 05:26
PROVIDERS: ADMIT Neurological Surgery; ATTEND Neurological Surgery
PROC: 5A1955Z Respiratory Ventilation, Greater than 96 Consecutive Hours (ICD-10-PCS; 2017-08-17)
PROC: 02HV33Z Insertion of Infusion Device into Superior Vena Cava, Percutaneous Approach (ICD-10-PCS; principal; 2017-08-20)
PROC: 0BJ08ZZ Inspection of Tracheobronchial Tree, Via Natural or Artificial Opening Endoscopic (ICD-10-PCS; 2017-08-20)
PROC: 0BH17EZ Insertion of Endotracheal Airway into Trachea, Via Natural or Artificial Opening (ICD-10-PCS; 2017-08-21)
DX: S06.6X6A Traumatic subarachnoid hemorrhage with loss of consciousness greater than 24 hours without return to pre-existing conscious level with patient surviving, initial encounter (principal); J96.00 Acute respiratory failure, unspecified whether with hypoxia or hypercapnia; A41.9 Sepsis, unspecified organism; J69.0 Pneumonitis due to inhalation of food and vomit; G93.1 Anoxic brain damage, not elsewhere classified; N17.9 Acute kidney failure, unspecified; E87.2 Acidosis; J95.851 Ventilator associated pneumonia; E46 Unspecified protein-calorie malnutrition; E87.0 Hyperosmolality and hypernatremia; E83.42 Hypomagnesemia; E83.39 Other disorders of phosphorus metabolism; R40.20 Unspecified coma; G40.409 Other generalized epilepsy and epileptic syndromes, not intractable, without status epilepticus; R73.9 Hyperglycemia, unspecified; E83.51 Hypocalcemia; Y04.0XXA Assault by unarmed brawl or fight, initial encounter